=== PATIENT | female | born 1975 | race Caucasian/White ===

== ENCOUNTER 2017-12-04 10:51 | Day surgery (SDC) | payer BC, OTHER ==
[~2017-12-04 10:51] MED LIST: Lactated Ringers 1,000 ML IV SCH; Sodium Chloride 0.9% 10 ML Syringe FLUSH PRN; Sodium Chloride 0.9% 2.5 ML Syringe FLUSH PRN
--- NOTE | 2017-12-04 12:11 | PCM.PREANE ---
Preanesthetic Assessment - Anesthesia/Transfusion/Family Hx Anesthesia History: Prior Anesthesia Without Reaction Family History of Anesthesia Reaction: No Transfusion History: No Prior Transfusion(s) - Review of Systems General: No Symptoms Pulmonary: No Symptoms Cardiovascular: No Symptoms Gastrointestinal: No Symptoms Other: Reports: None - Physical Assessment NPO Status Date: 12/03/17 NPO Status Time: 22:00 O2 Sat by Pulse Oximetry: 100 Respiratory Rate: 16 Vital Signs: Last Vital Signs Temp 36.4 C 12/04/17 11:15 Pulse 66 12/04/17 11:15 Resp 16 12/04/17 11:15 BP 95/54 L 12/04/17 11:15 Pulse Ox 100 12/04/17 11:15 Height: 1.68 m Weight: 78.471 kg ASA Class: 2 Mental Status: Alert & Oriented x3 Airway Class: Mallampati = 2 Dentition: Reports: Normal Dentition ROM/Head Extension: Full Lungs: Clear to Auscultation, Normal Respiratory Effort Cardiovascular: Regular Rate, Regular Rhythm - Lab Values: Laboratory Last Values POC Glucose 201 mg/dL (60-110) H 12/04/17 11:17 - Allergies Allergies/Adverse Reactions: Allergies Allergy/AdvReac Type Severity Reaction Status Date / Time aspirin Allergy Hives Verified 11/29/17 15:47 glyburide Allergy Hives Verified 11/29/17 15:47 ibuprofen Allergy Hives Verified 11/29/17 15:47 paroxetine HCl [From Paxil] Allergy Hives Verified 11/29/17 15:47 penicillin G Allergy Hives Verified 11/29/17 15:47 phenobarbital Allergy Hives Verified 11/29/17 15:47 sulfamethoxazole Allergy Hives Verified 11/29/17 15:47 [From Bactrim] trimethoprim [From Bactrim] Allergy Hives Verified 11/29/17 15:47 - Acknowledgements Anesthesia Type Planned: MAC Pt an Appropriate Candidate for the Planned Anesthesia: Yes Alternatives and Risks of Anesthesia Discussed w Pt/Guardian: Yes Pt/Guardian Understands and Agrees with Anesthesia Plan: Yes Additional Comments: Last seizure was several years ago, DM@ with sugar of 201 today PreAnesthesia Questionnaire Other HEENT History: wears glasses 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: Reports: Endometriosis Neurological History: Reports: Seizure, Other (See Below) Other Neuro History: hx of Epilepsy, last seizure was 5 years ago, hx of motion sickness Psychiatric History: Reports: Anxiety, Depression Endocrine/Metabolic History: Reports: Diabetes, Type II - Past Surgical History GI Surgical History: Reports: Hernia, Inguinal Female Surgical History: Reports: Hysterectomy Musculoskeletal Surgical History: Reports: Arthroscopic Knee Other Musculoskeletal Surgeries/Procedures:: bilateral - SUBSTANCE USE Smoking Status *Q: Former Smoker Tobacco Use Within Last Twelve Months: Cigarettes Days Per Week of Alcohol Use: 0 Recreational Drug Use History: No - HOME MEDS Home Medications: Home Meds Lisinopril 5 mg PO DAILY 03/30/15 [History] Sertraline [Zoloft] 100 mg PO DAILY 03/30/15 [History] levETIRAcetam [Keppra] 500 mg PO BID 03/30/15 [History] metFORMIN [Glucophage] 750 mg PO BIDMEALS 03/30/15 [History] Cholecalciferol (Vitamin D3) [Vitamin D3] 1,000 unit PO DAILY 12/02/17 [History] Cyanocobalamin (Vitamin B12) [Vitamin B12] 1,000 mg PO ASDIRECTED 12/02/17 [ History] Esomeprazole Magnesium [Nexium 24Hr] 22.3 mg PO DAILY 12/02/17 [History] Liraglutide [Victoza] 1.2 mg SQ DAILY 12/02/17 [History] Saxagliptin HCl [Onglyza] 5 mg PO DAILY 12/02/17 [History] - CURRENT (IN HOUSE) MEDS Current Meds: Current Medications Lactated Ringer's (Ringers, Lactated) 1,000 mls @ 125 mls/hr IV ASDIRECTED [facility] Last Admin: 12/04/17 11:21 Dose: 125 mls/hr Sodium Chloride (Saline Flush) 10 ml FLUSH ASDIRECTED PRN PRN Reason: Keep Vein Open Sodium Chloride (Saline Flush) 2.5 ml FLUSH ASDIRECTED PRN PRN Reason: Keep Vein Open Sodium Chloride (Saline Flush) 10 ml FLUSH ASDIRECTED PRN PRN Reason: Keep Vein Open Sodium Chloride (Saline Flush) 2.5 ml FLUSH ASDIRECTED PRN PRN Reason: Keep Vein Open
[2017-12-04] MEDS ORDERED: Propofol 200 MG/20 ML SDV ONE (13:44)
[2017-12-04] MEDS ORDERED: Lidocaine 2% 5 ML SDV ONE (13:47)
--- NOTE | 2017-12-04 14:16 | PCM.OPNOTE ---
- General Post-Op/Procedure Note Date of Surgery/Procedure: 12/04/17 Operative Procedure(s): EGD Findings: Mild gastritis Pre Op Diagnosis: Dysphagia, early satiety, weight loss Post-Op Diagnosis: Mild gastritis Anesthesia Technique: XOCHITL Primary Surgeon: Kalpana Bello Condition: Good
--- NOTE | 2017-12-04 14:23 | PCM.POSTAN ---
POST ANESTHESIA ASSESSMENT - MENTAL STATUS Mental Status: Alert, Oriented - VITAL SIGNS Pulse Rate: 65 SaO2: 95 Resp Rate: 20 Blood Pressure: 106/59 - RESPIRATORY Respiratory Status: Respiratory Rate WNL, Airway Patent, O2 Saturation Stable - CARDIOVASCULAR CV Status: Pulse Rate WNL, Blood Pressure Stable - GASTROINTESTINAL GI Status: No Symptoms - PAIN Pain Score: 0 - POST OP HYDRATION Hydration Status: Adequate & Stable
[2017-12-04 15:00] VITALS: BP 106/62
--- NOTE | 2017-12-04 15:06 | PCM48HPAN ---
Post Anesthesia Note - EVALUATION WITHIN 48HRS OF ANESTHETIC Vital Signs in Normal Range: Yes Patient Participated in Evaluation: Yes Respiratory Function Stable: Yes Airway Patent: Yes Cardiovascular Function Stable: Yes Hydration Status Stable: Yes Pain Control Satisfactory: Yes Nausea and Vomiting Control Satisfactory: Yes Mental Status Recovered: Yes
--- NOTE | 2017-12-04 22:05 | OR ---
SURGEON: GERARD BECK MD DATE OF PROCEDURE: 12/04/2017 PREOPERATIVE DIAGNOSES: 1. Unexplained weight loss. 2. Early satiety. 3. Dysphagia. POSTOPERATIVE DIAGNOSIS: Mild gastritis. PROCEDURE PERFORMED: Diagnostic EGD. ANESTHESIA: MAC. EXTENT TO EXAM: To the second portion of duodenum. PREPARATION: Good. LIMITATIONS: None. INSTRUMENT USED: Olympus endoscope. INDICATIONS: The patient is a 42-year-old female, who has had early satiety, unexplained weight loss, and dysphagia for the past several months. The patient underwent a diagnostic esophagram that showed no abnormalities. The decision was made to proceed with a diagnostic EGD. The patient and I discussed the procedure as well as expected perioperative course. We discussed the risks including bleeding or perforation. The patient verbalized understanding and wishes to proceed. PROCEDURE IN DETAIL: The patient was brought into the endoscopy suite and placed in a beach chair position. A time-out was completed verifying the patient's name, age, date of , allergies, and procedure to be performed. A bite block was placed in the patient's mouth and monitored anesthesia care was induced. Continuous oxygen was provided via nasal cannula throughout the procedure. After adequate sedation was achieved, a well lubricated endoscope was placed in the patient's mouth and advanced under direct visualization to the second portion of duodenum. This appeared normal and a photograph was taken. The scope was then fully withdrawn while examining the color, texture, anatomy, and integrity of the upper GI tract. The patient's duodenal bulb appeared normal with no evidence of inflammation. The scope was brought into the stomach and a photograph was taken of the pylorus as well as the GE junction which appeared normal. The gastric mucosa appeared slightly erythematous, which would suggest some mild gastritis. Biopsies were taken of the gastric antrum, body, and fundus and sent for H. pylori testing and histologic review. The scope was then brought into the distal esophagus and a photograph was taken of the Z-line, which appeared normal. The scope was then fully withdrawn while closely examining the esophageal mucosa. The esophageal mucosa showed no evidence of any pathologic changes. The scope was then fully withdrawn and the procedure terminated. The patient tolerated the procedure well and was taken to PACU in stable condition. ENDOSCOPIC DIAGNOSIS: Mild gastritis, otherwise normal esophagogastroduodenoscopy. RECOMMENDATIONS: Follow up in clinic in 2 weeks. The patient and I discussed looking for other etiologies for her unexplained weight loss and early satiety by performing a possible CT scan of the chest, abdomen, and pelvis. If this appears normal, then we will refer the patient on to a dolphin trainer for further workup. SOCORRO MOORE /[id number]
== END 2017-12-04 14:50 | disposition home or self-care (01) ==
LOC: MW.SDS 10:51
PROVIDERS: ATTEND Surgery
DX: R13.10 Dysphagia, unspecified (principal); F41.9 Anxiety disorder, unspecified; F32.9 Major depressive disorder, single episode, unspecified; R56.9 Unspecified convulsions; E11.9 Type 2 diabetes mellitus without complications; Z88.6 Allergy status to analgesic agent; Z88.1 Allergy status to other antibiotic agents; Z88.8 Allergy status to other drugs, medicaments and biological substances; Z88.0 Allergy status to penicillin; Z88.2 Allergy status to sulfonamides; Z79.899 Other long term (current) drug therapy; Z90.710 Acquired absence of both cervix and uterus; Z98.890 Other specified postprocedural states; Z87.891 Personal history of nicotine dependence
CPT/HCPCS: 43235; 82962; J7120; 88305; 88312; J2704

== ENCOUNTER 2019-07-18 12:47 | Emergency (ER) | payer OTHER ==
[2019-07-18] MEDS ORDERED: methylPREDNISolone Sodium Succinate 125 MG/2 ML SDV IVPUSH ONE (12:50)
[2019-07-18] MEDS ORDERED: Sodium Chloride 0.9% 10 ML Syringe FLUSH PRN (12:50)
[2019-07-18] MEDS ORDERED: Famotidine 20 MG/2 ML SDV IVPUSH ONE (12:50)
[2019-07-18] MEDS ORDERED: Sodium Chloride 0.9% 1,000 ML IV ONE (12:50)
[2019-07-18] MEDS ORDERED: diphenhydrAMINE 50 MG/ML SDV IVPUSH ONE (12:50)
[2019-07-18] MEDS ORDERED: Sodium Chloride 0.9% 2.5 ML Syringe FLUSH PRN (12:50)
--- NOTE | 2019-07-18 13:05 | EDM.PDOC ---
ED HPI GENERAL MEDICAL PROBLEM - General Chief Complaint: Allergic Reaction Stated Complaint: BEE STING Time Seen by Provider: 07/18/19 12:50 Source of Information: Reports: Patient History Limitations: Reports: No Limitations - History of Present Illness INITIAL COMMENTS - FREE TEXT/NARRATIVE: History of present illness: []She has history of anaphylaxis to bee stings and was stung by a wasp minutes prior to arrival. She states her chest feels tight but has no throat symptoms at this point. Patient had run out of her EpiPen and not taking any meds prior to arrival. Review of systems: As per history of present illness and below otherwise all systems reviewed and negative. Past medical history: As per history of present illness and as reviewed below otherwise noncontributory. Surgical history: As per history of present illness and as reviewed below otherwise noncontributory. Social history: No reported history of drug or alcohol abuse. Family history: As per history of present illness and as reviewed below otherwise noncontributory. Physical exam: General: Well developed, well nourished in NAD HEENT: Atraumatic, normocephalic, pupils reactive, negative for conjunctival pallor or scleral icterus, mucous membranes moist, throat clear, no erythema or edema neck supple, nontender, trachea midline. No stridor Lungs: Clear to auscultation, breath sounds equal bilaterally, chest nontender. No wheezing or chest wall retractions Heart: S1S2, regular, negative for clicks, rubs, or JVD. Abdomen: NABS, Soft, nondistended, nontender. Negative for masses or hepatosplenomegaly. Negative for costovertebral tenderness. Pelvis: Stable nontender. Genitourinary: Deferred. Rectal: Deferred. Extremities: Atraumatic, negative for cords or calf pain. Neurovascular unremarkable. Neuro: Awake, alert, oriented. Cranial nerves II through XII unremarkable. Cerebellum unremarkable. Motor and sensory unremarkable throughout. Exam nonfocal. Skin: warm and dry no rashes Diagnostics: Monitored Therapeutics: solumedrol, Benadryl, Pepcid, IV fluid ED Course: stable Impression: Allergic reaction Prescriptions: Epipen Plan: Take meds as directed, follow up with your primary care physician, return to ER if symptoms worsen or change. Definitive disposition and diagnosis as appropriate pending reevaluation and review of above. - Related Data Allergies Allergy/AdvReac Type Severity Reaction Status Date / Time aspirin Allergy Hives Verified 11/29/17 15:47 bee venom protein (honey bee) Allergy Anaphylactic Verified 07/18/19 13:16 Shock glyburide Allergy Hives Verified 11/29/17 15:47 ibuprofen Allergy Hives Verified 11/29/17 15:47 paroxetine HCl [From Paxil] Allergy Hives Verified 11/29/17 15:47 penicillin G Allergy Hives Verified 11/29/17 15:47 phenobarbital Allergy Hives Verified 11/29/17 15:47 sulfamethoxazole Allergy Hives Verified 11/29/17 15:47 [From Bactrim] trimethoprim [From Bactrim] Allergy Hives Verified 11/29/17 15:47 Home Meds: Home Meds Lisinopril 5 mg PO DAILY 03/30/15 [History] Sertraline [Zoloft] 100 mg PO DAILY 03/30/15 [History] levETIRAcetam [Keppra] 500 mg PO BID 03/30/15 [History] metFORMIN [Glucophage] 500 mg PO BIDMEALS 03/30/15 [History] Cholecalciferol (Vitamin D3) [Vitamin D3] 1,000 unit PO DAILY 12/02/17 [History] Cyanocobalamin (Vitamin B12) [Vitamin B12] 1,000 mg PO ASDIRECTED 12/02/17 [ History] Esomeprazole Magnesium [Nexium 24Hr] 22.3 mg PO DAILY 12/02/17 [History] Liraglutide [Victoza] 1.2 mg SQ DAILY 12/02/17 [History] EPINEPHrine [Epipen] 0.3 mg IM ASDIRECTED PRN #2 injection 07/18/19 [Rx] Past Medical History Other HEENT History: 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 glasses 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 Neurological History: Reports: Seizure, Other (See Below) Other Neuro History: hx of Epilepsy, last seizure was 5 years ago, hx of motion sickness Psychiatric History: Reports: Anxiety, Depression Endocrine/Metabolic History: Reports: Diabetes, Type II - Past Surgical History GI Surgical History: Reports: Hernia, Inguinal Female Surgical History: Reports: Hysterectomy Musculoskeletal Surgical History: Reports: Arthroscopic Knee Other Musculoskeletal Surgeries/Procedures:: bilateral ED ROS ALLERGIC REACTION - Review of Systems Review Of Systems: See Below ED EXAM GENERAL NO PERIP PULSE - Physical Exam Exam: See Below Course - Vital Signs Last Recorded V/S: Last Vital Signs Temp 96.3 F 07/18/19 13:00 Pulse 79 07/18/19 13:00 Resp 18 07/18/19 13:00 BP 117/58 L 07/18/19 13:00 Pulse Ox 100 07/18/19 13:00 - Orders/Labs/Meds Orders: Active Orders 24 hr Category Date Time Status Cardiac Monitoring [RC] . DIRECTED Care 07/18/19 12:51 Active Sodium Chloride 0.9% [Saline Flush] Med 07/18/19 12:50 Active 10 ml FLUSH ASDIRECTED PRN Sodium Chloride 0.9% [Saline Flush] Med 07/18/19 12:50 Active 2.5 ml FLUSH ASDIRECTED PRN Saline Lock Insert [OM.PC] Stat Oth 07/18/19 12:50 Ordered Medication Orders Sodium Chloride (Saline Flush) 10 ml FLUSH ASDIRECTED PRN PRN Reason: Keep Vein Open Last Admin: 07/18/19 13:07 Dose: 10 ml Sodium Chloride (Saline Flush) 2.5 ml FLUSH ASDIRECTED PRN PRN Reason: Keep Vein Open Last Admin: 07/18/19 13:07 Dose: 2.5 ml Meds: Medications Generic Name Dose Route Start Last Admin Trade Name Freq PRN Reason Stop Dose Admin Sodium Chloride 10 ml 07/18/19 12:50 07/18/19 13:07 Saline Flush FLUSH 10 ml ASDIRECTED PRN Administration Keep Vein Open Sodium Chloride 2.5 ml 07/18/19 12:50 07/18/19 13:07 Saline Flush FLUSH 2.5 ml ASDIRECTED PRN Administration Keep Vein Open Discontinued Medications Generic Name Dose Route Start Last Admin Trade Name Freq PRN Reason Stop Dose Admin Diphenhydramine HCl 25 mg 07/18/19 12:50 07/18/19 13:06 Benadryl IVPUSH 07/18/19 12:51 25 mg ONETIME ONE Administration Famotidine 20 mg 07/18/19 12:50 07/18/19 13:06 Pepcid IVPUSH 07/18/19 12:51 20 mg ONETIME ONE Administration Sodium Chloride 1,000 mls @ 999 mls/hr 07/18/19 12:50 07/18/19 13:06 Normal Saline IV 07/18/19 13:50 999 mls/hr .Bolus ONE Administration Methylprednisolone Sodium Succinate 125 mg 07/18/19 12:50 07/18/19 13:07 Solu-Medrol IVPUSH 07/18/19 12:51 125 mg ONETIME ONE Administration Departure - Departure Time of Disposition: 14:11 Disposition: Home, Self-Care 01 Condition: Good Clinical Impression: Allergic reaction Qualifiers: Encounter type: initial encounter Qualified Code(s): T78.40XA - Allergy, unspecified, initial encounter - Discharge Information *PRESCRIPTION DRUG MONITORING PROGRAM REVIEWED*: Not Applicable *COPY OF PRESCRIPTION DRUG MONITORING REPORT IN PATIENT VALENTIN: Not Applicable Prescriptions: EPINEPHrine [Epipen] 0.3 mg IM ASDIRECTED PRN #2 injection PRN Reason: Allergies Referrals: PCP,None [Primary Care Provider] - Additional Instructions: The following information is given to patients seen in the emergency department who are being discharged to home. This information is to outline your options for follow-up care. We provide all patients seen in our emergency department with a follow-up referral. The need for follow-up, as well as the timing and circumstances, are variable depending upon the specifics of your emergency department visit. If you don't have a primary care physician on staff, we will provide you with a referral. We always advise you to contact your personal physician following an emergency department visit to inform them of the circumstance of the visit and for follow-up with them and/or the need for any referrals to a consulting specialist. The emergency department will also refer you to a specialist when appropriate. This referral assures that you have the opportunity for follow-up care with a specialist. All of these measure are taken in an effort to provide you with optimal care, which includes your follow-up. Under all circumstances we always encourage you to contact your private physician who remains a resource for coordinating your care. When calling for follow-up care, please make the office aware that this follow-up is from your recent emergency room visit. If for any reason you are refused follow-up, please contact the [facility] at and asked to speak to the emergency department charge nurse. Take meds as directed, follow up with your primary care physician, return to ER if symptoms worsen or change. [facility] [address] [place] [id number] - My Orders Last 24 Hours: My Active Orders 07/18/19 12:50 Sodium Chloride 0.9% [Saline Flush] 10 ml FLUSH ASDIRECTED PRN Sodium Chloride 0.9% [Saline Flush] 2.5 ml FLUSH ASDIRECTED PRN Saline Lock Insert [OM.PC] Stat 07/18/19 12:51 Cardiac Monitoring [RC] . DIRECTED - Assessment/Plan Last 24 Hours: My Active Orders 07/18/19 12:50 Sodium Chloride 0.9% [Saline Flush] 10 ml FLUSH ASDIRECTED PRN Sodium Chloride 0.9% [Saline Flush] 2.5 ml FLUSH ASDIRECTED PRN Saline Lock Insert [OM.PC] Stat 07/18/19 12:51 Cardiac Monitoring [RC] . DIRECTED
[2019-07-18 14:36] VITALS: BP 112/65; PULSE 65
== END 2019-07-18 14:36 | disposition home or self-care (01) ==
LOC: MW.ED 12:47
DX: T63.461A Toxic effect of venom of wasps, accidental (unintentional), initial encounter (principal); R07.9 Chest pain, unspecified; E11.9 Type 2 diabetes mellitus without complications; F41.9 Anxiety disorder, unspecified; F32.9 Major depressive disorder, single episode, unspecified; G40.909 Epilepsy, unspecified, not intractable, without status epilepticus; Z79.84 Long term (current) use of oral hypoglycemic drugs; Z79.899 Other long term (current) drug therapy; Z88.2 Allergy status to sulfonamides; Z88.1 Allergy status to other antibiotic agents; Z88.6 Allergy status to analgesic agent; Z91.030 Bee allergy status; Z88.8 Allergy status to other drugs, medicaments and biological substances; Z88.0 Allergy status to penicillin
CPT/HCPCS: 96361; 96374; 96375; 99282; J1200; J2930; J7040; S0028; J3490

== ENCOUNTER 2020-05-07 00:46 | Inpatient (IN) | payer OTHER ==
[2020-05-07] MEDS ORDERED: Ondansetron 4 MG/2 ML SDV IVPUSH ONE ×2 (00:59→09:54)
[2020-05-07] MEDS ORDERED: Sodium Chloride 0.9% 2.5 ML Syringe FLUSH PRN (00:59)
[2020-05-07] MEDS ORDERED: Sodium Chloride 0.9% 10 ML Syringe FLUSH PRN (00:59)
[2020-05-07] MEDS ORDERED: Ondansetron 4 MG/2 ML SDV ONE (01:00)
[2020-05-07] MEDS ORDERED: Lactated Ringers 1,000 ML IV ONE ×3 (01:11→23:49)
--- NOTE | 2020-05-07 01:21 | EDM.PDOC ---
ED HPI GENERAL MEDICAL PROBLEM - General Chief Complaint: Chest Pain Stated Complaint: CHEST PAIN, FINGERS NUMB Time Seen by Provider: 05/07/20 00:48 Source of Information: Reports: Patient, Old Records History Limitations: Reports: No Limitations - History of Present Illness INITIAL COMMENTS - FREE TEXT/NARRATIVE: 44-year-old female past medical history of type 2 diabetes mellitus, hypertension, depression, GERD presenting with chest discomfort, nausea, vomiting. Patient states that around 6:30 PM this evening, she was eating dinner at a wedding. Immediately after eating, she began feeling diaphoretic, nauseated, and has experienced persistent vomiting. Reports 5X episodes of nonbloody emesis this evening along with generalized weakness, diaphoresis, intermittent numbness in both of her hands. Complains of midline thoracic back pain as well. No self treatment prior to arrival, no other complaints. No one else that ate the same food at the wedding became ill. Epigastric Pain Score (Numeric/FACES): 10 - Related Data Allergies Allergy/AdvReac Type Severity Reaction Status Date / Time aspirin Allergy Hives Verified 05/07/20 01:29 bee venom protein (honey bee) Allergy Anaphylactic Verified 05/07/20 01:29 Shock glyburide Allergy Hives Verified 05/07/20 01:29 ibuprofen Allergy Hives Verified 05/07/20 01:29 paroxetine HCl [From Paxil] Allergy Hives Verified 05/07/20 01:29 penicillin G Allergy Hives Verified 05/07/20 01:29 phenobarbital Allergy Hives Verified 05/07/20 01:29 sulfamethoxazole Allergy Hives Verified 05/07/20 01:29 [From Bactrim] trimethoprim [From Bactrim] Allergy Hives Verified 05/07/20 01:29 Home Meds: Home Meds Insulin Detemir [Levemir] 10 units SUBCUT BEDTIME 05/07/20 [History] Insulin Detemir [Levemir] 25 units SUBCUT DAILY 05/07/20 [History] Insulin Lispro [HumaLOG] 1 unit SUBCUT TIDMEALS 05/07/20 [History] Non-Formulary Medication [NF Drug] 05/07/20 [History] Omeprazole 20 mg PO DAILY 05/07/20 [History] Potassium Chloride [Klor-Con M20] 80 mg PO BID 05/07/20 [History] Sertraline [Zoloft] 50 mg PO DAILY 05/07/20 [History] SitaGLIPtin [Januvia] 50 mg PO DAILY 05/07/20 [History] levETIRAcetam [Keppra XR] 500 mg PO BID 05/07/20 [History] metFORMIN [Glucophage XR] 1,000 mg PO DAILY 05/07/20 [History] metOLazone [Metolazone] 2.5 mg PO DAILY 05/07/20 [History] Past Medical History Other HEENT History: wears glasses [employer] History: Reports: Endometriosis Neurological History: Reports: Seizure, Other (See Below) Other Neuro History: hx of Epilepsy, last seizure was 5 years ago, hx of motion sickness Psychiatric History: Reports: Anxiety, Depression Endocrine/Metabolic History: Reports: Diabetes, Type II - Infectious Disease History Infectious Disease History: Reports: None - Past Surgical History GI Surgical History: Reports: Hernia, Inguinal Female Surgical History: Reports: Hysterectomy Musculoskeletal Surgical History: Reports: Arthroscopic Knee Other Musculoskeletal Surgeries/Procedures:: bilateral Social & Family History - Family History Family Medical History: Noncontributory - Tobacco Use Smoking Status *Q: Never Smoker Second Hand Smoke Exposure: No - Caffeine Use Caffeine Use: Reports: None - Recreational Drug Use Recreational Drug Use: No ED ROS GENERAL - Review of Systems Review Of Systems: See Below Constitutional: Reports: Malaise, Weakness. Denies: Fever, Chills HEENT: Reports: No Symptoms Respiratory: Denies: Shortness of Breath Cardiovascular: Denies: Chest Pain Endocrine: Reports: No Symptoms GI/Abdominal: Reports: Abdominal Pain, Nausea, Vomiting. Denies: Black Stool, Bloody Stool, Hematemesis, Hematochezia, Melena, Stool Incontinence : Denies: Flank Pain Musculoskeletal: Reports: Back Pain Skin: Reports: Diaphoresis Neurological: Reports: Numbness (Bilateral hand numbness). Denies: Headache Psychiatric: Reports: No Symptoms ED EXAM, GENERAL - Physical Exam Exam: See Below Free Text/Narrative:: Vital signs reviewed. Nursing notes reviewed. Constitutional: Awake, alert, appears uncomfortable. Head: Normocephalic, atraumatic. Eyes: EOMI, conjunctiva normal, no discharge, no scleral icterus. Ears, Nose, Throat: External ears and nose normal, moist oral mucosa. Cardiovascular: 2+ radial pulses bilaterally, 2+ DP pulses bilaterally capillary refill less than 2 seconds. Pulmonary: normal work of breathing, no accessory muscle use. CTA BL Abdomen/GI: Soft, mild epigastric tenderness, nondistended, no guarding or rigidity, no masses. Musculoskeletal: No deformities. Integumentary: Appropriate color for ethnicity, cool, diaphoretic, no pallor or jaundice, no rash. Neurologic: Alert, answering questions appropriately, normal speech, no facial droop, moving all extremities well. Psychiatric: Appropriate mood and affect, normal thought process. EKG INTERPRETATION EKG Interpretation Comments: 12-Lead ECG Interpretation Acquired: 1:04 AM Rhythm: Sinus rhythm Rate: 73 bpm Harvey: Normal Intervals: Prolonged QT Ectopy: None Ischemic Changes: None apparent RV Strain: No obvious RV strain pattern. ST Segments/T-Waves: No notable changes Interpretation: Prolonged QT Course - Vital Signs Text/Narrative:: Patient hemodynamically stable, afebrile, well-appearing, looks nontoxic. Differential diagnosis includes but is not limited to: Gastroenteritis, gastritis, peptic ulcer disease, pancreatitis, acute cholecystitis, biliary colic, acute coronary syndrome, thoracic aortic dissection, Boerhaave syndrome, electrolyte disturbance, anemia, etc. Labs returned showing a significant leukocytosis with neutrophilic predominance. Lactate elevated at 3.6. Severe hypokalemia to 2.1. Urinalysis shows ketones but no evidence of blood or infection. Twelve-lead EKG obtained showing severe QT interval prolongation. IV access established and blood cultures were drawn. Patient was given IV magnesium sulfate followed by IV potassium chloride. She received IV fentanyl and antibiotic medications. She was then given p.o. potassium. She was given a dose of vancomycin and meropenem given possible concern for sepsis. She was initially mildly hypothermic and has a significant leukocytosis. However, she does not have any focal infectious symptoms. Lactate improved after IV fluids. Given severe epigastric pain radiating to the thoracic back, we pursued CT angiographic imaging of the chest, abdomen, and pelvis. We also performed an ultrasound study of the abdomen. These studies showed no acute findings. Patient will need to be admitted to the hospital given her severe hypokalemia with ECG changes. She will also need to have her cultures followed to ensure there is not an infectious etiology to explain her symptoms. I spoke with the accepting hospitalist Dr. Barrios who agrees to admit. Last Recorded V/S: Last Vital Signs Temp 35.8 C L 05/07/20 01:06 Pulse 79 05/07/20 04:17 Resp 12 05/07/20 04:17 BP 123/67 05/07/20 04:17 Pulse Ox 100 05/07/20 04:17 - Orders/Labs/Meds Orders: Active Orders 24 hr Category Date Time Status Cardiac Monitoring [RC] . DIRECTED Care 05/07/20 00:59 Active EKG 12 Lead [EKG Documentation Completion] [RC] STAT Care 05/07/20 00:52 Active Pulse Oximetry [RC] ASDIRECTED Care 05/07/20 00:59 Active Ang Pelvis [CT] Stat Exams 05/07/20 02:30 Taken CULTURE BLOOD [] Stat Lab 05/07/20 03:10 Results CULTURE BLOOD [BC] Stat Lab 05/07/20 03:20 Results Sodium Chloride 0.9% [Saline Flush] Med 05/07/20 00:59 Active 10 ml FLUSH ASDIRECTED PRN Sodium Chloride 0.9% [Saline Flush] Med 05/07/20 00:59 Active 2.5 ml FLUSH ASDIRECTED PRN Blood Culture x2 Reflex Set [OM.PC] Stat Oth 05/07/20 02:56 Ordered Saline Lock Insert [OM.PC] Stat Oth 05/07/20 00:59 Ordered Medication Orders Acetaminophen (Tylenol Extra Strength) 500 mg PO Q4H PRN PRN Reason: fever/pain Lactated Ringer's (Ringers, Lactated) 1,000 mls @ 125 mls/hr IV ASDIRECTED [facility] Last Admin: 05/07/20 05:48 Dose: 125 mls/hr Documented by: LYDIA Pantoprazole Sodium 40 mg/ (Sodium Chloride) 10 mls @ 300 mls/hr IV Q24H [facility] Last Admin: 05/07/20 05:48 Dose: 300 mls/hr Documented by: LYDIA Vancomycin HCl 1 gm/ Sodium (Chloride) 250 mls @ 166 mls/hr IV Q12H [facility] Meropenem 1 gm/ Sodium (Chloride) 100 mls @ 200 mls/hr IV Q12H [facility] Insulin Aspart (Novolog) 0 unit SUBCUT TIDAC [facility]; Protocol Last Admin: 05/07/20 06:43 Dose: 3 units Documented by: LYDIA Morphine Sulfate (Morphine) 1 mg IVPUSH Q4H PRN PRN Reason: Pain Sodium Chloride (Saline Flush) 10 ml FLUSH ASDIRECTED PRN PRN Reason: Keep Vein Open Sodium Chloride (Saline Flush) 2.5 ml FLUSH ASDIRECTED PRN PRN Reason: Keep Vein Open Labs: Laboratory Tests 05/07/20 05/07/20 05/07/20 Range/Units 00:55 00:55 00:55 WBC 22.98 H (4.0-11.0) K/uL RBC 5.23 (4.30-5.90) M/uL Hgb 14.4 (12.0-16.0) g/dL Hct 41.0 (36.0-46.0) % MCV 78.4 L (80.0-98.0) fL MCH 27.5 (27.0-32.0) pg MCHC 35.1 (31.0-37.0) g/dL RDW Std Deviation 36.4 (28.0-62.0) fl RDW Coeff of Wil 13 (11.0-15.0) % Plt Count 314 (150-400) K/uL MPV 11.10 (7.40-12.00) fL Neut % (Auto) 82.2 H (48.0-80.0) % Lymph % (Auto) 11.4 L (16.0-40.0) % [place] % (Auto) 6.2 (0.0-15.0) % Eos % (Auto) 0.1 (0.0-7.0) % Baso % (Auto) 0.1 (0.0-1.5) % Neut # (Auto) 18.9 H (1.4-5.7) K/uL Lymph # (Auto) 2.6 H (0.6-2.4) K/uL [place] # (Auto) 1.4 H (0.0-0.8) K/uL Eos # (Auto) 0.0 (0.0-0.7) K/uL Baso # (Auto) 0.0 (0.0-0.1) K/uL INR Lactate (0.20-2.00) mmol/L Sodium 135 L (136-145) mmol/L Potassium 2.1 L* (3.5-5.1) mmol/L Chloride 92 L (98-107) mmol/L Carbon Dioxide 23.0 (21.0-32.0) mmol/L BUN 18 (7.0-18.0) mg/dL Creatinine 1.0 (0.6-1.0) mg/dL Est Cr Clr Drug Dosing 69.09 mL/min Estimated GFR (MDRD) 60.0 ml/min Glucose 181 H (74-106) mg/dL Calcium 9.8 (8.5-10.1) mg/dL Total Bilirubin 0.6 (0.2-1.0) mg/dL AST 18 (15-37) IU/L ALT 21 (14-63) IU/L Alkaline Phosphatase 88 (46-116) U/L Troponin I < 0.050 (0.000-0.056) ng/mL Total Protein 7.7 (6.4-8.2) g/dL Albumin 4.2 (3.4-5.0) g/dL Globulin 3.5 (2.6-4.0) g/dL Albumin/Globulin Ratio 1.2 (0.9-1.6) Lipase (73-393) U/L HCG, Qual NEGATIVE (NEG) Urine Color Urine Appearance Urine pH (5.0-8.0) Ur Specific [place] (1.001-1.035) Urine Protein (NEGATIVE) mg/dL Urine Glucose (UA) (NEGATIVE) mg/dL Urine Ketones (NEGATIVE) mg/dL Urine Occult Blood (NEGATIVE) Urine Nitrite (NEGATIVE) Urine Bilirubin (NEGATIVE) Urine Urobilinogen (<2.0) EU/dL Ur Leukocyte Esterase (NEGATIVE) 05/07/20 05/07/20 05/07/20 Range/Units 00:55 00:55 00:55 WBC (4.0-11.0) K/uL RBC (4.30-5.90) M/uL Hgb (12.0-16.0) g/dL Hct (36.0-46.0) % MCV (80.0-98.0) fL MCH (27.0-32.0) pg MCHC (31.0-37.0) g/dL RDW Std Deviation (28.0-62.0) fl RDW Coeff of Wil (11.0-15.0) % Plt Count (150-400) K/uL MPV (7.40-12.00) fL Neut % (Auto) (48.0-80.0) % Lymph % (Auto) (16.0-40.0) % [place] % (Auto) (0.0-15.0) % Eos % (Auto) (0.0-7.0) % Baso % (Auto) (0.0-1.5) % Neut # (Auto) (1.4-5.7) K/uL Lymph # (Auto) (0.6-2.4) K/uL [place] # (Auto) (0.0-0.8) K/uL Eos # (Auto) (0.0-0.7) K/uL Baso # (Auto) (0.0-0.1) K/uL INR 1.01 Lactate 3.6 H* (0.20-2.00) mmol/L Sodium (136-145) mmol/L Potassium (3.5-5.1) mmol/L Chloride (98-107) mmol/L Carbon Dioxide (21.0-32.0) mmol/L BUN (7.0-18.0) mg/dL Creatinine (0.6-1.0) mg/dL Est Cr Clr Drug Dosing mL/min Estimated GFR (MDRD) ml/min Glucose (74-106) mg/dL Calcium (8.5-10.1) mg/dL Total Bilirubin (0.2-1.0) mg/dL AST (15-37) IU/L ALT (14-63) IU/L Alkaline Phosphatase (46-116) U/L Troponin I (0.000-0.056) ng/mL Total Protein (6.4-8.2) g/dL Albumin (3.4-5.0) g/dL Globulin (2.6-4.0) g/dL Albumin/Globulin Ratio (0.9-1.6) Lipase 64 L (73-393) U/L HCG, Qual (NEG) Urine Color Urine Appearance Urine pH (5.0-8.0) Ur Specific [place] (1.001-1.035) Urine Protein (NEGATIVE) mg/dL Urine Glucose (UA) (NEGATIVE) mg/dL Urine Ketones (NEGATIVE) mg/dL Urine Occult Blood (NEGATIVE) Urine Nitrite (NEGATIVE) Urine Bilirubin (NEGATIVE) Urine Urobilinogen (<2.0) EU/dL Ur Leukocyte Esterase (NEGATIVE) 05/07/20 Range/Units 02:55 WBC (4.0-11.0) K/uL RBC (4.30-5.90) M/uL Hgb (12.0-16.0) g/dL Hct (36.0-46.0) % MCV (80.0-98.0) fL MCH (27.0-32.0) pg MCHC (31.0-37.0) g/dL RDW Std Deviation (28.0-62.0) fl RDW Coeff of Wil (11.0-15.0) % Plt Count (150-400) K/uL MPV (7.40-12.00) fL Neut % (Auto) (48.0-80.0) % Lymph % (Auto) (16.0-40.0) % [place] % (Auto) (0.0-15.0) % Eos % (Auto) (0.0-7.0) % Baso % (Auto) (0.0-1.5) % Neut # (Auto) (1.4-5.7) K/uL Lymph # (Auto) (0.6-2.4) K/uL [place] # (Auto) (0.0-0.8) K/uL Eos # (Auto) (0.0-0.7) K/uL Baso # (Auto) (0.0-0.1) K/uL INR Lactate (0.20-2.00) mmol/L Sodium (136-145) mmol/L Potassium (3.5-5.1) mmol/L Chloride (98-107) mmol/L Carbon Dioxide (21.0-32.0) mmol/L BUN (7.0-18.0) mg/dL Creatinine (0.6-1.0) mg/dL Est Cr Clr Drug Dosing mL/min Estimated GFR (MDRD) ml/min Glucose (74-106) mg/dL Calcium (8.5-10.1) mg/dL Total Bilirubin (0.2-1.0) mg/dL AST (15-37) IU/L ALT (14-63) IU/L Alkaline Phosphatase (46-116) U/L Troponin I (0.000-0.056) ng/mL Total Protein (6.4-8.2) g/dL Albumin (3.4-5.0) g/dL Globulin (2.6-4.0) g/dL Albumin/Globulin Ratio (0.9-1.6) Lipase (73-393) U/L HCG, Qual (NEG) Urine Color YELLOW Urine Appearance CLEAR Urine pH 5.5 (5.0-8.0) Ur Specific [place] 1.010 (1.001-1.035) Urine Protein NEGATIVE (NEGATIVE) mg/dL Urine Glucose (UA) NEGATIVE (NEGATIVE) mg/dL Urine Ketones 40 H (NEGATIVE) mg/dL Urine Occult Blood NEGATIVE (NEGATIVE) Urine Nitrite NEGATIVE (NEGATIVE) Urine Bilirubin NEGATIVE (NEGATIVE) Urine Urobilinogen 0.2 (<2.0) EU/dL Ur Leukocyte Esterase NEGATIVE (NEGATIVE) Meds: Medications Generic Name Dose Route Start Last Admin Trade Name Freq PRN Reason Stop Dose Admin Acetaminophen 500 mg 05/07/20 05:00 Tylenol Extra Strength PO Q4H PRN fever/pain Lactated Ringer's 1,000 mls @ 125 mls/hr 05/07/20 05:00 05/07/20 05:48 Ringers, Lactated IV 125 mls/hr ASDIRECTED [facility] Administration Pantoprazole Sodium 40 mg/ 10 mls @ 300 mls/hr 05/07/20 05:15 05/07/20 05:48 Sodium Chloride IV 300 mls/hr Q24H [facility] Administration Vancomycin HCl 1 gm/ Sodium 250 mls @ 166 mls/hr 05/07/20 16:00 Chloride IV Q12H [facility] Meropenem 1 gm/ Sodium 100 mls @ 200 mls/hr 05/07/20 16:00 Chloride IV Q12H [facility] Insulin Aspart 0 unit 05/07/20 07:30 05/07/20 06:43 Novolog SUBCUT 3 units TIDAC [facility] Administration Protocol Morphine Sulfate 1 mg 05/07/20 05:03 Morphine IVPUSH Q4H PRN Pain Sodium Chloride 10 ml 05/07/20 00:59 Saline Flush FLUSH ASDIRECTED PRN Keep Vein Open Sodium Chloride 2.5 ml 05/07/20 00:59 Saline Flush FLUSH ASDIRECTED PRN Keep Vein Open Discontinued Medications Generic Name Dose Route Start Last Admin Trade Name Odalys PRN Reason Stop Dose Admin Acetaminophen 1,000 mg 05/07/20 02:32 05/07/20 03:47 Tylenol Extra Strength PO 05/07/20 02:33 Not Given ONETIME ONE Fentanyl Confirm 05/07/20 02:18 05/07/20 02:57 Fentanyl Administered 05/07/20 02:19 50 mcg Dose Administration 50 mcg .ROUTE .STK-MED ONE Fentanyl 50 mcg 05/07/20 02:18 05/07/20 03:04 Fentanyl IVPUSH 05/07/20 02:19 Not Given ONETIME ONE Lactated Ringer's 1,000 mls @ 999 mls/hr 05/07/20 01:11 05/07/20 01:15 Ringers, Lactated IV 05/07/20 02:11 999 mls/hr .BOLUS ONE Administration Magnesium Sulfate 2 gm/ Premix 50 mls @ 50 mls/hr 05/07/20 01:56 05/07/20 02:08 IV 05/07/20 02:55 50 mls/hr ONETIME ONE Administration Potassium Chloride 20 meq/ 50 mls @ 25 mls/hr 05/07/20 01:57 05/07/20 03:48 Premix IV 05/07/20 03:56 20 mls/hr ONETIME ONE Infusion Vancomycin HCl 1.5 gm/ 250 mls @ 167 mls/hr 05/07/20 03:20 Dextrose/Water IV 05/07/20 04:49 ONETIME ONE Meropenem 2 gm/ Sodium 100 mls @ 100 mls/hr 05/07/20 03:23 05/07/20 03:50 Chloride IV 05/07/20 04:22 100 mls/hr ONETIME ONE Administration Vancomycin HCl 1.5 gm/ 500 mls @ 334.014 mls/hr 05/07/20 03:32 05/07/20 04:04 Dextrose/Water IV 05/07/20 04:49 334.014 mls/hr ONETIME ONE Administration Ibuprofen 400 mg 05/07/20 02:32 05/07/20 03:16 Motrin PO 05/07/20 02:33 Not Given ONETIME ONE Iopamidol 100 ml 05/07/20 02:32 05/07/20 02:32 Isovue-370 (76%) IVPUSH 05/07/20 02:33 100 ml ONETIME ONE Administration Metoclopramide HCl 10 mg 05/07/20 01:58 05/07/20 02:07 Reglan IVPUSH 05/07/20 01:59 10 mg ONETIME ONE Administration Ondansetron HCl 4 mg 05/07/20 00:59 05/07/20 01:09 Zofran IVPUSH 05/07/20 01:00 4 mg ONETIME ONE Administration Ondansetron HCl Confirm 05/07/20 01:00 05/07/20 01:15 Zofran Administered 05/07/20 01:01 Not Given Dose 4 mg .ROUTE .STK-MED ONE Potassium Chloride 60 meq 05/07/20 03:00 05/07/20 03:06 Potassium Chloride PO 05/07/20 03:01 60 meq ONETIME ONE Administration Departure - Departure Time of Disposition: 03:00 Disposition: Admitted As Inpatient 65 Clinical Impression: Hypokalemia, Epigastric abdominal pain Nausea and vomiting Qualifiers: Vomiting type: unspecified Vomiting Intractability: non-intractable Qualified Code(s): R11.2 - Nausea with vomiting, unspecified Sepsis Event Note (ED) - Evaluation Sepsis Screening Result: No Definite Risk - Focused Exam Vital Signs: Vital Signs Temp Pulse Resp BP Pulse Ox 05/07/20 03:16 82 12 129/52 L 99 05/07/20 02:14 64 18 136/64 99 05/07/20 01:18 73 21 H 132/72 100 05/07/20 01:06 35.8 C L 83 20 99/66 100 - My Orders Last 24 Hours: My Active Orders 05/07/20 00:52 EKG 12 Lead [EKG Documentation Completion] [RC] STAT 05/07/20 00:59 Cardiac Monitoring [RC] . DIRECTED Pulse Oximetry [RC] ASDIRECTED Sodium Chloride 0.9% [Saline Flush] 10 ml FLUSH ASDIRECTED PRN Sodium Chloride 0.9% [Saline Flush] 2.5 ml FLUSH ASDIRECTED PRN Saline Lock Insert [OM.PC] Stat 05/07/20 02:30 Ang Pelvis [CT] Stat 05/07/20 02:56 Blood Culture x2 Reflex Set [OM.PC] Stat 05/07/20 03:10 CULTURE BLOOD [BC] Stat 05/07/20 03:20 CULTURE BLOOD [BC] Stat - Assessment/Plan Last 24 Hours: My Active Orders 05/07/20 00:52 EKG 12 Lead [EKG Documentation Completion] [RC] STAT 05/07/20 00:59 Cardiac Monitoring [RC] . DIRECTED Pulse Oximetry [RC] ASDIRECTED Sodium Chloride 0.9% [Saline Flush] 10 ml FLUSH ASDIRECTED PRN Sodium Chloride 0.9% [Saline Flush] 2.5 ml FLUSH ASDIRECTED PRN Saline Lock Insert [OM.PC] Stat 05/07/20 02:30 Ang Pelvis [CT] Stat 05/07/20 02:56 Blood Culture x2 Reflex Set [OM.PC] Stat 05/07/20 03:10 CULTURE BLOOD [BC] Stat 05/07/20 03:20 CULTURE BLOOD [BC] Stat
[2020-05-07 01:28] LABS: BLOOD UREA NITROGEN,BUN 18 mg/dL (7.0-18.0); CHLORIDE,CL 92 mmol/L (98-107); GLUCOSE RANDOM 181 mg/dL (74-106); SODIUM,NA 135 mmol/L (136-145)
[2020-05-07 01:29] LABS: POTASSIUM,K 2.1 mmol/L (3.5-5.1)
[2020-05-07] MEDS ORDERED: Magnesium Sulfate/Water 2 GM in Premix Bag 1 BAG IV ONE ×2 (01:56→11:05)
[2020-05-07] MEDS ORDERED: Potassium Chloride Riders 20 MEQ in Premix Bag 1 BAG IV ONE (01:57)
[2020-05-07] MEDS ORDERED: Metoclopramide 10 MG/2 ML SDV IVPUSH ONE (01:58)
--- NOTE | 2020-05-07 02:04 | CR ---
INDICATION: Chest pain, epigastric pain TECHNIQUE: Chest radiograph 1 view COMPARISON: None FINDINGS: Mediastinum: The mediastinum is normal in appearance. The heart silhouette is normal in size and morphology. Lung: Both lungs are unremarkable in appearance. No sign of pleural effusion seen. No pneumothorax is identified. Bone and Soft tissue: Unremarkable for age. IMPRESSION: 1. No acute cardiopulmonary disease is seen. Dictated by: Fede Gutierrez MD @ 05/07/2020 02:03:58 (Electronically Signed)
[2020-05-07] MEDS ORDERED: fentaNYL 50 MCG/ML SDV IVPUSH ONE (02:18)
[2020-05-07] MEDS ORDERED: fentaNYL 50 MCG/ML SDV ONE (02:18)
[2020-05-07] MEDS ORDERED: Iopamidol 755 Mg/ML 100 ML Bottle IVPUSH ONE (02:32)
[2020-05-07] MEDS ORDERED: Acetaminophen 500 MG Tab PO ONE (02:32)
[2020-05-07] MEDS ORDERED: Ibuprofen 400 MG Tab PO ONE (02:32)
[2020-05-07] MEDS ORDERED: Potassium Chloride 10% 20 MEQ/15 ML Soln 30 ML UD Cup PO ONE (03:00)
[2020-05-07] MEDS ORDERED: Vancomycin 1.5 GM in Dextrose 5% in Water 250 ML IV ONE ×2 (03:20)
--- NOTE | 2020-05-07 03:20 | CT ---
INDICATION: Epigastric pain radiating to back TECHNIQUE: CT chest with i.v. contrast using pulmonary angiographic technique. Coronal and sagittal reformats were obtained. CONTRAST: 100 mL Isovue 370 COMPARISON: None FINDINGS: Cardiovascular: The pulmonary arteries are unremarkable in enhancement with no evidence of acute pulmonary embolism. The heart has an unremarkable appearance and size. No sign of aneurysm in the thoracic aorta. Mediastinum: No mass or adenopathy seen. Lung: Both lungs are unremarkable in appearance. There is a 1 mm subpleural nodule present in the posterior right upper lobe, too small further characterize. Pleura and pericardium: No sign of pleural effusion seen. No significant pericardial effusion is present. Chest wall and axilla: No mass or adenopathy seen. Bone: Unremarkable for age. IMPRESSION: 1. No CT evidence of acute pulmonary emboli seen. Dictated by Fede Gutierrez MD @ 05/07/2020 3:18:41 AM Please note that all CT scans at this facility use dose modulation, iterative reconstruction, and/or weight-based dosing when appropriate to reduce radiation dose to as low as reasonably achievable. Dictated by: Fede Gutierrez MD @ 05/07/2020 03:18:44 (Electronically Signed)
--- NOTE | 2020-05-07 03:22 | CT ---
INDICATION: Epigastric pain radiating to back TECHNIQUE: CT Abdomen and pelvis with i.v. contrast. Coronal and sagittal reformats were obtained. CONTRAST: 100 mL Isovue 370 COMPARISON: None FINDINGS: Liver: Unremarkable. Spleen: Unremarkable. Pancreas: Unremarkable. Gallbladder: Unremarkable. Kidney: Unremarkable. No kidney or ureteral stones or obstruction seen. Adrenal: Unremarkable. Bowel: Small sliding type esophageal hiatal hernia (type I) is present. The appendix is normal in appearance and size. Vascular: Unremarkable. Lymph: Unremarkable. Peritoneum: Unremarkable. No pneumoperitoneum is seen. No significant ascites is noted. Pelvis: The patient is status post prior hysterectomy. Soft tissue: Unremarkable. Bone: Unremarkable for age. IMPRESSION: 1. Unremarkable with no CT correlate for the patient`s symptoms seen. Dictated by Fede Gutierrez MD @ 05/07/2020 3:20:09 AM Please note that all CT scans at this facility use dose modulation, iterative reconstruction, and/or weight-based dosing when appropriate to reduce radiation dose to as low as reasonably achievable. Dictated by: Fede Gutierrez MD @ 05/07/2020 03:20:23 (Electronically Signed)
[2020-05-07] MEDS ORDERED: Meropenem 2 GM in Sodium Chloride 0.9% 100 ML IV ONE (03:23)
[2020-05-07] MEDS ORDERED: Vancomycin 1.5 GM in Dextrose 5% in Water 500 ML IV ONE ×2 (03:32)
--- NOTE | 2020-05-07 04:26 | US ---
INDICATION: Epigastric pain, leukocytosis TECHNIQUE: Ultrasound abdomen limited. Sonographic images of the gallbladder and biliary tree were obtained using broderick-scale and color Doppler images. COMPARISON: None FINDINGS: Liver: The liver parenchyma is normal in echotexture. Gallbladder: The neck of the gallbladder is not well demonstrated. The gallbladder wall is normal in appearance. No pericholecystic fluid is present. No sonographic [place] sign is present. Common bile duct: 7 mm. No intrahepatic biliary ductal dilatation seen. Vascular: The visualized aorta and IVC unremarkable in appearance. Miscellaneous: Right kidney: 10.3 cm. IMPRESSION: 1. The gallbladder is unremarkable in appearance. Dictated by Fede Gutierrez MD @ 05/07/2020 4:25:52 AM Dictated by: Fede Gutierrez MD @ 05/07/2020 04:26:09 (Electronically Signed)
[2020-05-07] MEDS ORDERED: Acetaminophen 500 MG Tab PO PRN (05:00)
[2020-05-07] MEDS ORDERED: Pantoprazole 40 MG in Sodium Chloride 0.9% 10 ML IV SCH (05:15)
[2020-05-07] MEDS: Lactated Ringers 1,000 ML IV SCH ×2 (05:48→15:11)
[2020-05-07] MEDS: Insulin Aspart 100 Units/ML 3 ML Pen SUBCUT SCH ×3 (06:43→16:57)
[2020-05-07 10:10] LABS: BLOOD UREA NITROGEN,BUN 12 mg/dL (7.0-18.0); CARBON DIOXIDE,CO2 25.6 mmol/L (21.0-32.0); CHLORIDE,CL 94 mmol/L (98-107); GLUCOSE RANDOM 267 mg/dL (74-106); POTASSIUM,K 2.7 mmol/L (3.5-5.1); SODIUM,NA 135 mmol/L (136-145)
[2020-05-07] MEDS ORDERED: Potassium Chloride Riders 40 MEQ in Premix Bag 1 BAG IV ONE (10:54)
--- NOTE | 2020-05-07 10:58 | PCM.HP.2 ---
H&P History of Present Illness - General Date of Service: 05/07/20 Admit Problem/Dx: Admission Diagnosis/Problem Admission Diagnosis/Problem Hypokalemia - History of Present Illness Initial Comments - Free Text/Narative: 44-year-old female past medical history of type 2 diabetes mellitus, hypertension, depression, seizure, GERD presenting with chest discomfort, nausea, several episodes of vomiting. Patient states her symptoms started in evening immediately after she had her dinner at a wedding she was attending. States she didn't drink much alcohol, patient states she started feeling diaphoretic, nauseated, and has experienced persistent vomiting, later she experienced intermittent numbness in both of her hands. Pain is also present in her upper back. No one else that ate the same food at the wedding became ill. Labs returned showing a significant leukocytosis with neutrophilic predominance. Lactate elevated at 3.6. Severe hypokalemia to 2.1. Urinalysis shows ketones but no evidence of blood or infection. Twelve-lead EKG obtained showing severe QT interval prolongation. Patient was given IV magnesium sulfate followed by IV and PO potassium chloride. She received IV fentanyl and antibiotic medications due to concern of possible severe sepsis, cultures were obtained however no source of infection was found on imaging. CT angiographic imaging of the chest, abdomen, and pelvis and ultrasound study of the abdomen were unremarkable. Patient was admitted to the hospital given her intractable N/V. , severe hypokalemia with ECG changes, Epigastric Pain Score (Numeric/FACES): 10 - Related Data Allergies/Adverse Reactions: Allergies Allergy/AdvReac Type Severity Reaction Status Date / Time aspirin Allergy Hives Verified 05/07/20 08:15 bee venom protein (honey bee) Allergy Anaphylactic Verified 05/07/20 08:15 Shock glyburide Allergy Hives Verified 05/07/20 08:15 ibuprofen Allergy Hives Verified 05/07/20 08:15 paroxetine HCl [From Paxil] Allergy Hives Verified 05/07/20 08:15 penicillin G Allergy Hives Verified 05/07/20 08:15 phenobarbital Allergy Hives Verified 05/07/20 08:15 sulfamethoxazole Allergy Hives Verified 05/07/20 08:15 [From Bactrim] trimethoprim [From Bactrim] Allergy Hives Verified 05/07/20 08:15 Home Medications: Home Meds Insulin Detemir [Levemir] 10 units SUBCUT BEDTIME 05/07/20 [History] Insulin Detemir [Levemir] 25 units SUBCUT DAILY 05/07/20 [History] Insulin Lispro [HumaLOG] 1 unit SUBCUT TIDMEALS 05/07/20 [History] Non-Formulary Medication [NF Drug] 05/07/20 [History] Omeprazole 20 mg PO DAILY 05/07/20 [History] Potassium Chloride [Klor-Con M20] 80 mg PO BID 05/07/20 [History] Sertraline [Zoloft] 50 mg PO DAILY 05/07/20 [History] SitaGLIPtin [Januvia] 50 mg PO DAILY 05/07/20 [History] levETIRAcetam [Keppra XR] 500 mg PO BID 05/07/20 [History] metFORMIN [Glucophage XR] 1,000 mg PO DAILY 05/07/20 [History] metOLazone [Metolazone] 2.5 mg PO DAILY 05/07/20 [History] Past Medical History Other HEENT History: wears glasses [employer] History: Reports: Endometriosis Neurological History: Reports: Seizure, Other (See Below) Other Neuro History: hx of Epilepsy, last seizure was 5 years ago, hx of motion sickness Psychiatric History: Reports: Anxiety, Depression Endocrine/Metabolic History: Reports: Diabetes, Type II - Infectious Disease History Infectious Disease History: Reports: None - Past Surgical History GI Surgical History: Reports: Hernia, Inguinal Female Surgical History: Reports: Hysterectomy Musculoskeletal Surgical History: Reports: Arthroscopic Knee Other Musculoskeletal Surgeries/Procedures:: bilateral Social & Family History - Family History Family Medical History: Noncontributory - Tobacco Use Smoking Status *Q: Never Smoker Second Hand Smoke Exposure: No - Caffeine Use Caffeine Use: Reports: None - Recreational Drug Use Recreational Drug Use: No H&P Review of Systems - Review of Systems: Review Of Systems: See Below General: Reports: Chills, Malaise, Weakness, Fatigue HEENT: Denies: Dysphasia, Ear Pain Pulmonary: Denies: Shortness of Breath, Wheezing, Pleuritic Chest Pain Cardiovascular: Denies: Chest Pain, Palpitations, Dyspnea on Exertion Gastrointestinal: Reports: Abdominal Pain, Anorexia, Decreased Appetite, Nausea, Vomiting. Denies: Black Stool, Bloody Stool, Constipation, Diarrhea, Difficulty Swallowing, Distension, Hematemesis, Hematochezia, Melena, Stool Incontinence Genitourinary: Denies: Dysuria, Frequency, Burning Musculoskeletal: Denies: Neck Pain, Shoulder Pain Skin: Denies: Cyanosis, Jaundice, Mottled Psychiatric: Denies: Confusion, Depression, Mood Lability Neurological: Denies: Confusion, Dizziness, Headache, Pre-Existing Deficit, Seizure Exam - Exam Exam: See Below - Vital Signs Vital Signs: Last Vital Signs Temp 36.5 C 05/07/20 04:50 Pulse 84 05/07/20 04:50 Resp 17 05/07/20 04:50 BP 126/62 05/07/20 04:50 Pulse Ox 100 05/07/20 04:50 Weight: 89.675 kg - Exam Quality Assessment: No: Supplemental Oxygen General: Alert, Oriented Neck: Trachea Midline, Full Range of Motion Lungs: Clear to Auscultation, Normal Respiratory Effort Cardiovascular: Regular Rate, Regular Rhythm, Normal S1, Normal S2 GI/Abdominal Exam: Normal Bowel Sounds, Soft, No Organomegaly, No Distention, No Mass, Tender (epigastric). No: Distended, Abnormal Bowel Sounds Extremities: Normal Inspection, Normal Range of Motion Peripheral Pulses: 3+: Dorsalis Pedis (L), Dorsalis Pedis (R) Skin: Warm, Dry - Patient Data Lab Results Last 24 hrs: Laboratory Results - last 24 hr 05/07/20 05/07/20 05/07/20 Range/Units 00:55 00:55 00:55 WBC 22.98 H (4.0-11.0) K/uL RBC 5.23 (4.30-5.90) M/uL Hgb 14.4 (12.0-16.0) g/dL Hct 41.0 (36.0-46.0) % MCV 78.4 L (80.0-98.0) fL MCH 27.5 (27.0-32.0) pg MCHC 35.1 (31.0-37.0) g/dL RDW Std Deviation 36.4 (28.0-62.0) fl RDW Coeff of Wil 13 (11.0-15.0) % Plt Count 314 (150-400) K/uL MPV 11.10 (7.40-12.00) fL Neut % (Auto) 82.2 H (48.0-80.0) % Lymph % (Auto) 11.4 L (16.0-40.0) % [place] % (Auto) 6.2 (0.0-15.0) % Eos % (Auto) 0.1 (0.0-7.0) % Baso % (Auto) 0.1 (0.0-1.5) % Neut # (Auto) 18.9 H (1.4-5.7) K/uL Lymph # (Auto) 2.6 H (0.6-2.4) K/uL [place] # (Auto) 1.4 H (0.0-0.8) K/uL Eos # (Auto) 0.0 (0.0-0.7) K/uL Baso # (Auto) 0.0 (0.0-0.1) K/uL Nucleated RBC % /100WBC Nucleated RBCs # K/uL INR Lactate (0.20-2.00) mmol/L Sodium 135 L (136-145) mmol/L Potassium 2.1 L* (3.5-5.1) mmol/L Chloride 92 L (98-107) mmol/L Carbon Dioxide 23.0 (21.0-32.0) mmol/L BUN 18 (7.0-18.0) mg/dL Creatinine 1.0 (0.6-1.0) mg/dL Est Cr Clr Drug Dosing 69.09 mL/min Estimated GFR (MDRD) 60.0 ml/min Glucose 181 H (74-106) mg/dL POC Glucose (60-110) mg/dL Calcium 9.8 (8.5-10.1) mg/dL Phosphorus (2.6-4.7) mg/dL Magnesium (1.8-2.4) mg/dL Total Bilirubin 0.6 (0.2-1.0) mg/dL AST 18 (15-37) IU/L ALT 21 (14-63) IU/L Alkaline Phosphatase 88 (46-116) U/L Troponin I < 0.050 (0.000-0.056) ng/mL Total Protein 7.7 (6.4-8.2) g/dL Albumin 4.2 (3.4-5.0) g/dL Globulin 3.5 (2.6-4.0) g/dL Albumin/Globulin Ratio 1.2 (0.9-1.6) Lipase (73-393) U/L HCG, Qual NEGATIVE (NEG) Urine Color Urine Appearance Urine pH (5.0-8.0) Ur Specific [place] (1.001-1.035) Urine Protein (NEGATIVE) mg/dL Urine Glucose (UA) (NEGATIVE) mg/dL Urine Ketones (NEGATIVE) mg/dL Urine Occult Blood (NEGATIVE) Urine Nitrite (NEGATIVE) Urine Bilirubin (NEGATIVE) Urine Urobilinogen (<2.0) EU/dL Ur Leukocyte Esterase (NEGATIVE) SARS-CoV-2 RNA (RT-PCR) (NEGATIVE) 05/07/20 05/07/20 05/07/20 Range/Units 00:55 00:55 00:55 WBC (4.0-11.0) K/uL RBC (4.30-5.90) M/uL Hgb (12.0-16.0) g/dL Hct (36.0-46.0) % MCV (80.0-98.0) fL MCH (27.0-32.0) pg MCHC (31.0-37.0) g/dL RDW Std Deviation (28.0-62.0) fl RDW Coeff of Wil (11.0-15.0) % Plt Count (150-400) K/uL MPV (7.40-12.00) fL Neut % (Auto) (48.0-80.0) % Lymph % (Auto) (16.0-40.0) % [place] % (Auto) (0.0-15.0) % Eos % (Auto) (0.0-7.0) % Baso % (Auto) (0.0-1.5) % Neut # (Auto) (1.4-5.7) K/uL Lymph # (Auto) (0.6-2.4) K/uL [place] # (Auto) (0.0-0.8) K/uL Eos # (Auto) (0.0-0.7) K/uL Baso # (Auto) (0.0-0.1) K/uL Nucleated RBC % /100WBC Nucleated RBCs # K/uL INR 1.01 Lactate 3.6 H* (0.20-2.00) mmol/L Sodium (136-145) mmol/L Potassium (3.5-5.1) mmol/L Chloride (98-107) mmol/L Carbon Dioxide (21.0-32.0) mmol/L BUN (7.0-18.0) mg/dL Creatinine (0.6-1.0) mg/dL Est Cr Clr Drug Dosing mL/min Estimated GFR (MDRD) ml/min Glucose (74-106) mg/dL POC Glucose (60-110) mg/dL Calcium (8.5-10.1) mg/dL Phosphorus (2.6-4.7) mg/dL Magnesium (1.8-2.4) mg/dL Total Bilirubin (0.2-1.0) mg/dL AST (15-37) IU/L ALT (14-63) IU/L Alkaline Phosphatase (46-116) U/L Troponin I (0.000-0.056) ng/mL Total Protein (6.4-8.2) g/dL Albumin (3.4-5.0) g/dL Globulin (2.6-4.0) g/dL Albumin/Globulin Ratio (0.9-1.6) Lipase 64 L (73-393) U/L HCG, Qual (NEG) Urine Color Urine Appearance Urine pH (5.0-8.0) Ur Specific [place] (1.001-1.035) Urine Protein (NEGATIVE) mg/dL Urine Glucose (UA) (NEGATIVE) mg/dL Urine Ketones (NEGATIVE) mg/dL Urine Occult Blood (NEGATIVE) Urine Nitrite (NEGATIVE) Urine Bilirubin (NEGATIVE) Urine Urobilinogen (<2.0) EU/dL Ur Leukocyte Esterase (NEGATIVE) SARS-CoV-2 RNA (RT-PCR) (NEGATIVE) 05/07/20 05/07/20 05/07/20 Range/Units 02:55 04:00 05:00 WBC (4.0-11.0) K/uL RBC (4.30-5.90) M/uL Hgb (12.0-16.0) g/dL Hct (36.0-46.0) % MCV (80.0-98.0) fL MCH (27.0-32.0) pg MCHC (31.0-37.0) g/dL RDW Std Deviation (28.0-62.0) fl RDW Coeff of Wil (11.0-15.0) % Plt Count (150-400) K/uL MPV (7.40-12.00) fL Neut % (Auto) (48.0-80.0) % Lymph % (Auto) (16.0-40.0) % [place] % (Auto) (0.0-15.0) % Eos % (Auto) (0.0-7.0) % Baso % (Auto) (0.0-1.5) % Neut # (Auto) (1.4-5.7) K/uL Lymph # (Auto) (0.6-2.4) K/uL [place] # (Auto) (0.0-0.8) K/uL Eos # (Auto) (0.0-0.7) K/uL Baso # (Auto) (0.0-0.1) K/uL Nucleated RBC % /100WBC Nucleated RBCs # K/uL INR Lactate 1.7 (0.20-2.00) mmol/L Sodium (136-145) mmol/L Potassium (3.5-5.1) mmol/L Chloride (98-107) mmol/L Carbon Dioxide (21.0-32.0) mmol/L BUN (7.0-18.0) mg/dL Creatinine (0.6-1.0) mg/dL Est Cr Clr Drug Dosing mL/min Estimated GFR (MDRD) ml/min Glucose (74-106) mg/dL POC Glucose (60-110) mg/dL Calcium (8.5-10.1) mg/dL Phosphorus (2.6-4.7) mg/dL Magnesium (1.8-2.4) mg/dL Total Bilirubin (0.2-1.0) mg/dL AST (15-37) IU/L ALT (14-63) IU/L Alkaline Phosphatase (46-116) U/L Troponin I (0.000-0.056) ng/mL Total Protein (6.4-8.2) g/dL Albumin (3.4-5.0) g/dL Globulin (2.6-4.0) g/dL Albumin/Globulin Ratio (0.9-1.6) Lipase (73-393) U/L HCG, Qual (NEG) Urine Color YELLOW Urine Appearance CLEAR Urine pH 5.5 (5.0-8.0) Ur Specific [place] 1.010 (1.001-1.035) Urine Protein NEGATIVE (NEGATIVE) mg/dL Urine Glucose (UA) NEGATIVE (NEGATIVE) mg/dL Urine Ketones 40 H (NEGATIVE) mg/dL Urine Occult Blood NEGATIVE (NEGATIVE) Urine Nitrite NEGATIVE (NEGATIVE) Urine Bilirubin NEGATIVE (NEGATIVE) Urine Urobilinogen 0.2 (<2.0) EU/dL Ur Leukocyte Esterase NEGATIVE (NEGATIVE) SARS-CoV-2 RNA (RT-PCR) NEGATIVE (NEGATIVE) 05/07/20 05/07/20 05/07/20 Range/Units 06:28 09:35 09:35 WBC 16.30 H (4.0-11.0) K/uL RBC 4.80 (4.30-5.90) M/uL Hgb 13.4 (12.0-16.0) g/dL Hct 38.8 (36.0-46.0) % MCV 80.8 (80.0-98.0) fL MCH 27.9 (27.0-32.0) pg MCHC 34.5 (31.0-37.0) g/dL RDW Std Deviation 38.6 (28.0-62.0) fl RDW Coeff of Wil 13 (11.0-15.0) % Plt Count 300 (150-400) K/uL MPV 10.50 (7.40-12.00) fL Neut % (Auto) 88.7 H (48.0-80.0) % Lymph % (Auto) 8.2 L (16.0-40.0) % [place] % (Auto) 3.0 (0.0-15.0) % Eos % (Auto) 0.0 (0.0-7.0) % Baso % (Auto) 0.1 (0.0-1.5) % Neut # (Auto) 14.5 H (1.4-5.7) K/uL Lymph # (Auto) 1.3 (0.6-2.4) K/uL [place] # (Auto) 0.5 (0.0-0.8) K/uL Eos # (Auto) 0.0 (0.0-0.7) K/uL Baso # (Auto) 0.0 (0.0-0.1) K/uL Nucleated RBC % 0.0 /100WBC Nucleated RBCs # 0 K/uL INR Lactate (0.20-2.00) mmol/L Sodium 135 L (136-145) mmol/L Potassium 2.7 L (3.5-5.1) mmol/L Chloride 94 L (98-107) mmol/L Carbon Dioxide 25.6 (21.0-32.0) mmol/L BUN 12 (7.0-18.0) mg/dL Creatinine 0.9 (0.6-1.0) mg/dL Est Cr Clr Drug Dosing 76.76 mL/min Estimated GFR (MDRD) > 60.0 ml/min Glucose 267 H (74-106) mg/dL POC Glucose 251 H (60-110) mg/dL Calcium 8.8 (8.5-10.1) mg/dL Phosphorus 3.9 (2.6-4.7) mg/dL Magnesium 1.8 (1.8-2.4) mg/dL Total Bilirubin (0.2-1.0) mg/dL AST (15-37) IU/L ALT (14-63) IU/L Alkaline Phosphatase (46-116) U/L Troponin I (0.000-0.056) ng/mL Total Protein (6.4-8.2) g/dL Albumin (3.4-5.0) g/dL Globulin (2.6-4.0) g/dL Albumin/Globulin Ratio (0.9-1.6) Lipase (73-393) U/L HCG, Qual (NEG) Urine Color Urine Appearance Urine pH (5.0-8.0) Ur Specific [place] (1.001-1.035) Urine Protein (NEGATIVE) mg/dL Urine Glucose (UA) (NEGATIVE) mg/dL Urine Ketones (NEGATIVE) mg/dL Urine Occult Blood (NEGATIVE) Urine Nitrite (NEGATIVE) Urine Bilirubin (NEGATIVE) Urine Urobilinogen (<2.0) EU/dL Ur Leukocyte Esterase (NEGATIVE) SARS-CoV-2 RNA (RT-PCR) (NEGATIVE) Result Diagrams: 05/07/20 09:35 05/07/20 09:35 Jordy Results Last 24 hrs: Microbiology 05/07/20 03:20 Anaerobic Blood Culture - Final Blood - Venous - Lab Draw 05/07/20 03:10 Anaerobic Blood Culture - Final Blood - Venous Sepsis Event Note - Evaluation Sepsis Screening Result: No Definite Risk - Focused Exam Vital Signs: Vital Signs Temp Pulse Resp BP Pulse Ox 05/07/20 04:50 36.5 C 84 17 126/62 100 05/07/20 04:17 79 12 123/67 100 05/07/20 03:16 82 12 129/52 L 99 05/07/20 02:14 64 18 136/64 99 05/07/20 01:18 73 21 H 132/72 100 05/07/20 01:06 35.8 C L 83 20 99/66 100 Date Exam was Performed: 05/07/20 Time Exam was Performed: 13:06 - Problem List (1) Epigastric abdominal pain SNOMED Code(s): 17479077 ICD Code: R10.13 - EPIGASTRIC PAIN Status: Acute Current Visit: Yes (2) Hypokalemia SNOMED Code(s): 32807417 ICD Code: E87.6 - HYPOKALEMIA Status: Acute Current Visit: Yes (3) Nausea and vomiting SNOMED Code(s): 86453063 ICD Code: R11.2 - NAUSEA WITH VOMITING, UNSPECIFIED Status: Acute Current Visit: Yes Qualifiers: Vomiting type: unspecified Vomiting Intractability: non-intractable Qualified Code(s): R11.2 - Nausea with vomiting, unspecified (4) Gastritis SNOMED Code(s): 7470326 ICD Code: K29.70 - GASTRITIS, UNSPECIFIED, WITHOUT BLEEDING Status: Acute Current Visit: No Problem List Initiated/Reviewed/Updated: Yes Orders Last 24hrs: Active Orders 24 hr Category Date Time Status Admission Status [Patient Status] [ADT] Stat ADT 05/07/20 03:33 Active Activity as Tolerated [RC] .Routine Care 05/07/20 04:51 Active Antiembolic Devices [RC] PER UNIT ROUTINE Care 05/07/20 04:54 Active Blood Glucose Check, Bedside [RC] TIDAC Care 05/07/20 04:53 Active Cardiac Monitoring [RC] . DIRECTED Care 05/07/20 00:59 Active EKG 12 Lead [EKG Documentation Completion] [RC] AM Care 05/07/20 07:00 Active EKG 12 Lead [EKG Documentation Completion] [RC] STAT Care 05/07/20 00:52 Active Oxygen Therapy [RC] ASDIRECTED Care 05/07/20 04:50 Active Pulse Oximetry [RC] ASDIRECTED Care 05/07/20 00:59 Active Pulse Oximetry [RC] ASDIRECTED Care 05/07/20 04:50 Active Telemetry Monitoring [Cardiac Monitoring] [RC] . Care 05/07/20 04:57 Active DIRECTED Vital Signs [RC] Q4H Care 05/07/20 04:49 Active NPO [Nothing Per Oral Diet] [DIET] Diet 05/07/20 Lunch Active Ang Pelvis [CT] Stat Exams 05/07/20 02:30 Taken CULTURE BLOOD [BC] Stat Lab 05/07/20 03:10 Results CULTURE BLOOD [BC] Stat Lab 05/07/20 03:20 Results GLYCOSYLATED HEMOGLOBIN,HGBA1C [CHEM] Routine Lab 05/07/20 10:57 Ordered Acetaminophen [Tylenol Extra Strength] Med 05/07/20 05:00 Active 500 mg PO Q4H PRN Insulin Aspart [NovoLOG] Med 05/07/20 07:30 Active See Protocol SUBCUT TIDAC Lactated Ringers [Ringers, Lactated] 1,000 ml Med 05/07/20 05:00 Active IV ASDIRECTED Meropenem Premix [Meropenem] 1 gm Med 05/07/20 16:00 Active Premix Bag 1 bag IV Q12H Morphine Sulfate [Morphine] Med 05/07/20 05:03 Active 1 mg IVPUSH Q4H PRN Pantoprazole [ProTONIX IV] 40 mg Med 05/07/20 05:15 Active Sodium Chloride 0.9% [Normal Saline] 10 ml IV Q24H Potassium Chloride Riders [KCL 40 MEQ in Water 100 ML] Med 05/07/20 10:54 Active 40 meq Premix Bag 1 bag IV ONETIME Sodium Chloride 0.9% [Saline Flush] Med 05/07/20 00:59 Active 10 ml FLUSH ASDIRECTED PRN Sodium Chloride 0.9% [Saline Flush] Med 05/07/20 00:59 Active 2.5 ml FLUSH ASDIRECTED PRN Vancomycin 1.25 gm Med 05/07/20 15:00 Active Sodium Chloride 0.9% [Normal Saline (AdvBag)] 250 ml IV Q12H Blood Culture x2 Reflex Set [OM.PC] Stat Oth 05/07/20 02:56 Ordered SCD [Sequential Compression Device] [OM.PC] Routine Oth 05/07/20 04:54 Ordered Saline Lock Insert [.PC] Stat Ot 05/07/20 00:59 Ordered Medication Orders Acetaminophen (Tylenol Extra Strength) 500 mg PO Q4H PRN PRN Reason: fever/pain Lactated Ringer's (Ringers, Lactated) 1,000 mls @ 125 mls/hr IV ASDIRECTED REPLACED BY [facility] Last Admin: 05/07/20 05:48 Dose: 125 mls/hr Documented by: LYDIA Pantoprazole Sodium 40 mg/ (Sodium Chloride) 10 mls @ 300 mls/hr IV Q24H REPLACED BY [facility] Last Admin: 05/07/20 05:48 Dose: 300 mls/hr Documented by: LYDIA Meropenem/Sodium Chloride 1 gm (/ Premix) 50 mls @ 100 mls/hr IV Q12H [place] Vancomycin HCl 1.25 gm/ Sodium (Chloride) 250 mls @ 167 mls/hr IV Q12H [place] Potassium Chloride 40 meq/ (Premix) 100 mls @ 25 mls/hr IV ONETIME ONE Stop: 05/07/20 14:53 Insulin Aspart (Novolog) 0 unit SUBCUT TIDAC REPLACED BY [facility]; Protocol Last Admin: 05/07/20 06:43 Dose: 3 units Documented by: LYDIA Morphine Sulfate (Morphine) 1 mg IVPUSH Q4H PRN PRN Reason: Pain Sodium Chloride (Saline Flush) 10 ml FLUSH ASDIRECTED PRN PRN Reason: Keep Vein Open Sodium Chloride (Saline Flush) 2.5 ml FLUSH ASDIRECTED PRN PRN Reason: Keep Vein Open Assessment/Plan Comment:: 44 y/o F admitted for intractable N/V, severe hypokalemia, prolonged Qtc Admit to tele Keep patient NPO till nausea resolves, ice chips ok start IV fluids LR @ 125 cc/hr I doubt there is sepsis/infection, WBC count likely all reactive, likely gastritis Will cont IV antibiotics and dc/ deescalate if no signs of sepsis,and/or cultures negative Aggressive repletion of potassium by IV, repeat EKG to fu on Qtc IV PPI daily, Zofran as needed ( watch for Qtc) SCD for DVT ppx Anion Gap is elevated but blood sugars arent that high, cont SSI as needed
[2020-05-07] MEDS ORDERED: Pantoprazole 40 MG in Sodium Chloride 0.9% 10 ML IV ONE (11:39)
[2020-05-07 11:41] LABS: HEMOGLOBIN A1C 7.9 % (4.5-6.2)
[2020-05-07] MEDS: Morphine 2 MG/ML SYRINGE IVPUSH PRN (13:34)
[2020-05-07] MEDS: Meropenem Premix 1 GM in Premix Bag 1 BAG IV SCH (16:47)
[2020-05-07] MEDS: LEVETIRACETAM 500 MG PO SCH (20:20)
[2020-05-07] MEDS: Insulin Detemir 100 Units/ML 3 ML Pen SUBCUT SCH (20:44)
[2020-05-08] MEDS: Lactated Ringers 1,000 ML IV SCH ×3 (01:08→20:50)
[2020-05-08] MEDS: Meropenem Premix 1 GM in Premix Bag 1 BAG IV SCH (03:57)
[2020-05-08] MEDS: Insulin Aspart 100 Units/ML 3 ML Pen SUBCUT SCH ×3 (06:03→17:01)
[2020-05-08 06:27] LABS: BLOOD UREA NITROGEN,BUN 6 mg/dL (7.0-18.0); CARBON DIOXIDE,CO2 31.5 mmol/L (21.0-32.0); CHLORIDE,CL 102 mmol/L (98-107); GLUCOSE RANDOM 119 mg/dL (74-106); POTASSIUM,K 2.9 mmol/L (3.5-5.1); SODIUM,NA 140 mmol/L (136-145)
[2020-05-08] MEDS ORDERED: Magnesium Sulfate/Water 2 GM in Premix Bag 1 BAG IV ONE (09:30)
[2020-05-08] MEDS: Ondansetron 4 MG/2 ML SDV IVPUSH PRN ×3 (09:49→20:57)
[2020-05-08] MEDS: LEVETIRACETAM 500 MG PO SCH ×2 (09:54→21:03)
[2020-05-08] MEDS: Sertraline 50 MG Tab PO SCH (09:54)
[2020-05-08] MEDS ORDERED: diphenhydrAMINE 50 MG/ML SDV IVPUSH ONE (10:21)
[2020-05-08] MEDS: Morphine 2 MG/ML SYRINGE IVPUSH PRN ×3 (10:32→20:57)
[2020-05-08] MEDS: Pantoprazole 40 MG in Sodium Chloride 0.9% 10 ML IV SCH (10:35)
[2020-05-08 11:31] LABS: BILIRUBIN INDIRECT 0.6
--- NOTE | 2020-05-08 11:49 | PCM.PN ---
- General Info Date of Service: 05/08/20 Admission Dx/Problem (Free Text): Admission Diagnosis/Problem Admission Diagnosis/Problem Hypokalemia Subjective Update: seen at bedside, overnight was comfortable, this AM started feeling nausea and vomited small amount of liquid. Epigastric discomfort - Review of Systems General: Reports: Fatigue, Malaise. Denies: Fever, Weakness Pulmonary: Denies: Shortness of Breath, Pleuritic Chest Pain Cardiovascular: Denies: Chest Pain, Palpitations, Dyspnea on Exertion Gastrointestinal: Reports: Constipation, Decreased Appetite, Nausea, Vomiting. Denies: Diarrhea, Difficulty Swallowing, Hematochezia, Melena Genitourinary: Denies: Dysuria, Frequency, Burning Musculoskeletal: Denies: Neck Pain, Shoulder Pain, Arm Pain Skin: Denies: Cyanosis, Jaundice, Mottled - Patient Data Vitals - Most Recent: Last Vital Signs Temp 36.3 C 05/08/20 08:00 Pulse 66 05/08/20 08:00 Resp 16 05/08/20 08:00 BP 122/53 L 05/08/20 08:00 Pulse Ox 98 05/08/20 08:00 Weight - Most Recent: 89.675 kg I&O - Last 24 Hours: Intake & Output 05/07/20 05/08/20 05/08/20 22:59 06:59 14:59 Intake Total 2984 2347 Output Total 1000 500 Balance 1984 1847 Lab Results Last 24 Hours: Laboratory Results - last 24 hr 05/07/20 05/07/20 05/07/20 Range/Units 11:52 13:17 16:55 WBC (4.0-11.0) K/uL RBC (4.30-5.90) M/uL Hgb (12.0-16.0) g/dL Hct (36.0-46.0) % MCV (80.0-98.0) fL MCH (27.0-32.0) pg MCHC (31.0-37.0) g/dL RDW Std Deviation (28.0-62.0) fl RDW Coeff of Wil (11.0-15.0) % Plt Count (150-400) K/uL MPV (7.40-12.00) fL Neut % (Auto) (48.0-80.0) % Lymph % (Auto) (16.0-40.0) % Mathews % (Auto) (0.0-15.0) % Eos % (Auto) (0.0-7.0) % Baso % (Auto) (0.0-1.5) % Neut # (Auto) (1.4-5.7) K/uL Lymph # (Auto) (0.6-2.4) K/uL Mathews # (Auto) (0.0-0.8) K/uL Eos # (Auto) (0.0-0.7) K/uL Baso # (Auto) (0.0-0.1) K/uL Nucleated RBC % /100WBC Nucleated RBCs # K/uL Sodium (136-145) mmol/L Potassium (3.5-5.1) mmol/L Chloride (98-107) mmol/L Carbon Dioxide (21.0-32.0) mmol/L BUN (7.0-18.0) mg/dL Creatinine (0.6-1.0) mg/dL Est Cr Clr Drug Dosing mL/min Estimated GFR (MDRD) ml/min Glucose (74-106) mg/dL POC Glucose 254 H 255 H 179 H (60-110) mg/dL Calcium (8.5-10.1) mg/dL Phosphorus (2.6-4.7) mg/dL Magnesium (1.8-2.4) mg/dL Total Bilirubin (0.2-1.0) mg/dL Direct Bilirubin (0.0-0.5) mg/dL Indirect Bilirubin AST (15-37) IU/L ALT (14-63) IU/L Alkaline Phosphatase (46-116) U/L Total Protein (6.4-8.2) g/dL Albumin (3.4-5.0) g/dL Globulin (2.6-4.0) g/dL Albumin/Globulin Ratio (0.9-1.6) 05/07/20 05/08/20 05/08/20 Range/Units 19:40 06:00 06:00 WBC 8.05 (4.0-11.0) K/uL RBC 4.20 L (4.30-5.90) M/uL Hgb 11.3 L (12.0-16.0) g/dL Hct 35.0 L (36.0-46.0) % MCV 83.3 (80.0-98.0) fL MCH 26.9 L (27.0-32.0) pg MCHC 32.3 (31.0-37.0) g/dL RDW Std Deviation 40.7 (28.0-62.0) fl RDW Coeff of Wil 13 (11.0-15.0) % Plt Count 225 (150-400) K/uL MPV 10.60 (7.40-12.00) fL Neut % (Auto) 59.7 (48.0-80.0) % Lymph % (Auto) 30.7 (16.0-40.0) % Mathews % (Auto) 8.8 (0.0-15.0) % Eos % (Auto) 0.7 (0.0-7.0) % Baso % (Auto) 0.1 (0.0-1.5) % Neut # (Auto) 4.8 (1.4-5.7) K/uL Lymph # (Auto) 2.5 H (0.6-2.4) K/uL Mathews # (Auto) 0.7 (0.0-0.8) K/uL Eos # (Auto) 0.1 (0.0-0.7) K/uL Baso # (Auto) 0.0 (0.0-0.1) K/uL Nucleated RBC % 0.0 /100WBC Nucleated RBCs # 0 K/uL Sodium 140 (136-145) mmol/L Potassium 2.9 L (3.5-5.1) mmol/L Chloride 102 (98-107) mmol/L Carbon Dioxide 31.5 (21.0-32.0) mmol/L BUN 6 L (7.0-18.0) mg/dL Creatinine 0.7 (0.6-1.0) mg/dL Est Cr Clr Drug Dosing 98.69 mL/min Estimated GFR (MDRD) > 60.0 ml/min Glucose 119 H (74-106) mg/dL POC Glucose 144 H (60-110) mg/dL Calcium 8.3 L (8.5-10.1) mg/dL Phosphorus 2.2 L (2.6-4.7) mg/dL Magnesium 1.8 (1.8-2.4) mg/dL Total Bilirubin (0.2-1.0) mg/dL Direct Bilirubin (0.0-0.5) mg/dL Indirect Bilirubin AST (15-37) IU/L ALT (14-63) IU/L Alkaline Phosphatase (46-116) U/L Total Protein (6.4-8.2) g/dL Albumin (3.4-5.0) g/dL Globulin (2.6-4.0) g/dL Albumin/Globulin Ratio (0.9-1.6) 05/08/20 05/08/20 Range/Units 06:00 06:00 WBC (4.0-11.0) K/uL RBC (4.30-5.90) M/uL Hgb (12.0-16.0) g/dL Hct (36.0-46.0) % MCV (80.0-98.0) fL MCH (27.0-32.0) pg MCHC (31.0-37.0) g/dL RDW Std Deviation (28.0-62.0) fl RDW Coeff of Wil (11.0-15.0) % Plt Count (150-400) K/uL MPV (7.40-12.00) fL Neut % (Auto) (48.0-80.0) % Lymph % (Auto) (16.0-40.0) % Mathews % (Auto) (0.0-15.0) % Eos % (Auto) (0.0-7.0) % Baso % (Auto) (0.0-1.5) % Neut # (Auto) (1.4-5.7) K/uL Lymph # (Auto) (0.6-2.4) K/uL Mathews # (Auto) (0.0-0.8) K/uL Eos # (Auto) (0.0-0.7) K/uL Baso # (Auto) (0.0-0.1) K/uL Nucleated RBC % /100WBC Nucleated RBCs # K/uL Sodium (136-145) mmol/L Potassium (3.5-5.1) mmol/L Chloride (98-107) mmol/L Carbon Dioxide (21.0-32.0) mmol/L BUN (7.0-18.0) mg/dL Creatinine (0.6-1.0) mg/dL Est Cr Clr Drug Dosing mL/min Estimated GFR (MDRD) ml/min Glucose (74-106) mg/dL POC Glucose 103 (60-110) mg/dL Calcium (8.5-10.1) mg/dL Phosphorus (2.6-4.7) mg/dL Magnesium (1.8-2.4) mg/dL Total Bilirubin 0.7 (0.2-1.0) mg/dL Direct Bilirubin 0.10 (0.0-0.5) mg/dL Indirect Bilirubin 0.60 AST 16 (15-37) IU/L ALT 20 (14-63) IU/L Alkaline Phosphatase 56 (46-116) U/L Total Protein 5.3 L (6.4-8.2) g/dL Albumin 2.8 L (3.4-5.0) g/dL Globulin 2.5 L (2.6-4.0) g/dL Albumin/Globulin Ratio 1.1 (0.9-1.6) Jordy Results Last 24 Hours: Microbiology 05/07/20 03:20 Aerobic Blood Culture - Preliminary Blood - Venous - Lab Draw NO GROWTH AFTER 1 DAY Anaerobic Blood Culture - Final 05/07/20 03:10 Aerobic Blood Culture - Preliminary Blood - Venous NO GROWTH AFTER 1 DAY Anaerobic Blood Culture - Final Med Orders - Current: Current Medications Acetaminophen (Tylenol Extra Strength) 500 mg PO Q4H PRN PRN Reason: fever/pain Lactated Ringer's (Ringers, Lactated) 1,000 mls @ 125 mls/hr IV ASDIRECTED [facility] Last Admin: 05/08/20 01:08 Dose: 125 mls/hr Documented by: Potassium Chloride 60 meq/ (Sodium Chloride) 530 mls @ 88.333 mls/hr IV ONETIME ONE Stop: 05/08/20 15:39 Last Admin: 05/08/20 09:55 Dose: 88.333 mls/hr Documented by: Pantoprazole Sodium 40 mg/ (Sodium Chloride) 10 mls @ 300 mls/hr IV Q24H [facility] Last Admin: 05/08/20 10:35 Dose: 300 mls/hr Documented by: Insulin [facility] (Novolog) [facility] Last Admin: 05/08/20 06:03 Dose: Not Given Documented by: Insulin Detemir (Levemir) 15 unit SUBCUT BEDTIME [facility] Last Admin: 05/07/20 20:44 Dose: 10 units Documented by: Morphine Sulfate (Morphine) 1 mg IVPUSH Q4H PRN PRN Reason: Pain Last Admin: 05/08/20 10:32 Dose: 1 mg Documented by: Ondansetron HCl (Zofran) 4 mg IVPUSH Q6H PRN PRN Reason: Nausea/Vomiting Last Admin: 05/08/20 09:49 Dose: 4 mg Documented by: Levetiracetam [ (Keppra] 500 Mg) 1 each PO BID [facility] Last Admin: 05/08/20 09:54 Dose: 1 each Documented by: Sertraline HCl (Zoloft) 50 mg PO DAILY [facility] Last Admin: 05/08/20 09:54 Dose: 50 mg Documented by: Sodium Chloride (Saline Flush) 10 ml FLUSH ASDIRECTED PRN PRN Reason: Keep Vein Open Sodium Chloride (Saline Flush) 2.5 ml FLUSH ASDIRECTED PRN PRN Reason: Keep Vein Open Discontinued Medications Acetaminophen (Tylenol Extra Strength) 1,000 mg PO ONETIME ONE Stop: 05/07/20 02:33 Last Admin: 05/07/20 03:47 Dose: Not Given Documented by: Diphenhydramine HCl (Benadryl) 25 mg IVPUSH ONETIME ONE Stop: 05/08/20 10:22 Last Admin: 05/08/20 10:36 Dose: 25 mg Documented by: Fentanyl (Fentanyl) Confirm Administered Dose 50 mcg .ROUTE .STK-MED ONE Stop: 05/07/20 02:19 Last Admin: 05/07/20 02:57 Dose: 50 mcg Documented by: Fentanyl (Fentanyl) 50 mcg IVPUSH ONETIME ONE Stop: 05/07/20 02:19 Last Admin: 05/07/20 03:04 Dose: Not Given Documented by: Lactated Ringer's (Ringers, Lactated) 1,000 mls @ 999 mls/hr IV .BOLUS ONE Stop: 05/07/20 02:11 Last Admin: 05/07/20 01:15 Dose: 999 mls/hr Documented by: Magnesium Sulfate 2 gm/ Premix 50 mls @ 50 mls/hr IV ONETIME ONE Stop: 05/07/20 02:55 Last Admin: 05/07/20 02:08 Dose: 50 mls/hr Documented by: Potassium Chloride 20 meq/ (Premix) 50 mls @ 25 mls/hr IV ONETIME ONE Stop: 05/07/20 03:56 Last Infusion: 05/07/20 03:48 Dose: 20 mls/hr Documented by: Vancomycin HCl 1.5 gm/ (Dextrose/Water) 250 mls @ 167 mls/hr IV ONETIME ONE Stop: 05/07/20 04:49 Last Admin: 05/07/20 06:48 Dose: Not Given Documented by: Meropenem 2 gm/ Sodium (Chloride) 100 mls @ 100 mls/hr IV ONETIME ONE Stop: 05/07/20 04:22 Last Admin: 05/07/20 03:50 Dose: 100 mls/hr Documented by: Vancomycin HCl 1.5 gm/ (Dextrose/Water) 500 mls @ 334.014 mls/hr IV ONETIME ONE Stop: 05/07/20 04:49 Last Admin: 05/07/20 04:04 Dose: 334.014 mls/hr Documented by: Pantoprazole Sodium 40 mg/ (Sodium Chloride) 10 mls @ 300 mls/hr IV Q24H [facility] Last Admin: 05/07/20 05:48 Dose: 300 mls/hr Documented by: Vancomycin HCl 1 gm/ Sodium (Chloride) 250 mls @ 166 mls/hr IV Q12H [facility] Meropenem/Sodium Chloride 1 gm (/ Premix) 50 mls @ 100 mls/hr IV Q12H [facility] Last Admin: 05/08/20 03:57 Dose: 100 mls/hr Documented by: Vancomycin HCl 1.25 gm/ Sodium (Chloride) 250 mls @ 167 mls/hr IV Q12H [facility] Last Admin: 05/08/20 02:26 Dose: 167 mls/hr Documented by: Potassium Chloride 40 meq/ (Premix) 100 mls @ 25 mls/hr IV ONETIME ONE Stop: 05/07/20 14:53 Last Admin: 05/07/20 11:47 Dose: 25 mls/hr Documented by: Lactated Ringer's (Ringers, Lactated) 1,000 mls @ 999 mls/hr IV .BOLUS ONE Stop: 05/07/20 12:04 Last Admin: 05/07/20 11:59 Dose: 999 mls/hr Documented by: Magnesium Sulfate 2 gm/ Premix 50 mls @ 50 mls/hr IV ONETIME ONE Stop: 05/07/20 12:04 Last Admin: 05/07/20 12:00 Dose: 50 mls/hr Documented by: Pantoprazole Sodium 40 mg/ (Sodium Chloride) 10 mls @ 300 mls/hr IV ONETIME ONE Stop: 05/07/20 11:40 Last Admin: 05/07/20 12:00 Dose: 300 mls/hr Documented by: Lactated Ringer's (Ringers, Lactated) 1,000 mls @ 999 mls/hr IV .BOLUS ONE Stop: 05/08/20 00:49 Last Admin: 05/08/20 00:00 Dose: 999 mls/hr Documented by: Magnesium Sulfate 2 gm/ Premix 50 mls @ 50 mls/hr IV ONETIME ONE Stop: 05/08/20 10:29 Last Admin: 05/08/20 09:55 Dose: 50 mls/hr Documented by: Ibuprofen (Motrin) 400 mg PO ONETIME ONE Stop: 05/07/20 02:33 Last Admin: 05/07/20 03:16 Dose: Not Given Documented by: Iopamidol (Isovue-370 (76%)) 100 ml IVPUSH ONETIME ONE Stop: 05/07/20 02:33 Last Admin: 05/07/20 02:32 Dose: 100 ml Documented by: Metoclopramide HCl (Reglan) 10 mg IVPUSH ONETIME ONE Stop: 05/07/20 01:59 Last Admin: 05/07/20 02:07 Dose: 10 mg Documented by: Ondansetron HCl (Zofran) 4 mg IVPUSH ONETIME ONE Stop: 05/07/20 01:00 Last Admin: 05/07/20 01:09 Dose: 4 mg Documented by: Ondansetron HCl (Zofran) Confirm Administered Dose 4 mg .ROUTE .STK-MED ONE Stop: 05/07/20 01:01 Last Admin: 05/07/20 01:15 Dose: Not Given Documented by: Ondansetron HCl (Zofran) 4 mg IVPUSH ONETIME ONE Stop: 05/07/20 09:55 Last Admin: 05/07/20 11:45 Dose: 4 mg Documented by: Potassium Chloride (Potassium Chloride) 60 meq PO ONETIME ONE Stop: 05/07/20 03:01 Last Admin: 05/07/20 03:06 Dose: 60 meq Documented by: - Exam General: Alert, Oriented Neck: Supple Lungs: Clear to Auscultation, Normal Respiratory Effort Cardiovascular: Regular Rate, Regular Rhythm GI/Abdominal Exam: Normal Bowel Sounds, Soft, Tender (epigatric) Extremities: Normal Inspection, Normal Range of Motion Sepsis Event Note - Evaluation Sepsis Screening Result: No Definite Risk - Focused Exam Vital Signs: Vital Signs Temp Pulse Resp BP Pulse Ox 05/08/20 08:00 36.3 C 66 16 122/53 L 98 05/08/20 02:29 36.6 C 64 16 90/55 L 95 Date Exam was Performed: 05/08/20 Time Exam was Performed: 11:44 - Problem List & Annotations (1) Epigastric abdominal pain SNOMED Code(s): 43182886 Code(s): R10.13 - EPIGASTRIC PAIN Status: Acute Current Visit: Yes (2) Hypokalemia SNOMED Code(s): 87805110 Code(s): E87.6 - HYPOKALEMIA Status: Acute Current Visit: Yes (3) Nausea and vomiting SNOMED Code(s): 73656202 Code(s): R11.2 - NAUSEA WITH VOMITING, UNSPECIFIED Status: Acute Current Visit: Yes Qualifiers: Vomiting type: unspecified Vomiting Intractability: non-intractable Qualified Code(s): R11.2 - Nausea with vomiting, unspecified (4) Gastritis SNOMED Code(s): 7914134 Code(s): K29.70 - GASTRITIS, UNSPECIFIED, WITHOUT BLEEDING Status: Acute Current Visit: No (5) Prolonged QT interval SNOMED Code(s): 381638052 Code(s): R94.31 - ABNORMAL ELECTROCARDIOGRAM [ECG] [EKG] Status: Acute Current Visit: Yes - Problem List Review Problem List Initiated/Reviewed/Updated: Yes - My Orders Last 24 Hours: My Active Orders 05/07/20 21:00 Insulin Detemir [Levemir] 15 unit SUBCUT BEDTIME Patient's Own Medication [Ptom] 1 each PO BID 05/08/20 09:00 Sertraline [Zoloft] 50 mg PO DAILY 05/08/20 09:16 Ondansetron [Zofran] 4 mg IVPUSH Q6H PRN 05/08/20 09:40 Potassium Chloride 60 meq Sodium Chloride 0.9% [Normal Saline] 500 ml IV ONETIME 05/08/20 10:30 Pantoprazole [ProTONIX IV] 40 mg Sodium Chloride 0.9% [Normal Saline] 10 ml IV Q24H 05/08/20 Lunch Clear Liquid Diet [DIET] 05/08/20 11:37 Code Status [Resuscitation Status] Routine - Plan Plan:: 44 y/o F admitted for intractable N/V, severe hypokalemia, prolonged Qtc Still Nauseous, some vomiting, Qtc better, will start Zofran PRN for nausea, give morphine and Benadryl for acute relief of N/V cont IV fluids LR @ 125 cc/hr WBC count resolved, cultures negative, no fever, will dc IV antibiotics, Replete potassium by IV Advance diet as tolerated IV PPI daily, Zofran as needed ( watch for Qtc) cont SSI as needed, Levemir at bedtime Lovenox for DVT ppx
[2020-05-08] MEDS: Insulin Detemir 100 Units/ML 3 ML Pen SUBCUT SCH (21:03)
[2020-05-09] MEDS: Morphine 2 MG/ML SYRINGE IVPUSH PRN ×2 (02:04→14:23)
[2020-05-09] MEDS: Lactated Ringers 1,000 ML IV SCH ×2 (03:10→16:43)
[2020-05-09] MEDS: Ondansetron 4 MG/2 ML SDV IVPUSH PRN ×4 (03:10→22:52)
[2020-05-09 05:39] LABS: BLOOD UREA NITROGEN,BUN 5 mg/dL (7.0-18.0); CARBON DIOXIDE,CO2 25.8 mmol/L (21.0-32.0); CHLORIDE,CL 98 mmol/L (98-107); GLUCOSE RANDOM 214 mg/dL (74-106); POTASSIUM,K 3.4 mmol/L (3.5-5.1); SODIUM,NA 136 mmol/L (136-145)
[2020-05-09] MEDS ORDERED: Magnesium Sulfate/Water 2 GM in Premix Bag 1 BAG IV ONE (08:43)
[2020-05-09] MEDS: Sertraline 50 MG Tab PO SCH (08:58)
[2020-05-09] MEDS: LEVETIRACETAM 500 MG PO SCH ×2 (08:59→22:42)
[2020-05-09] MEDS: Insulin Aspart 100 Units/ML 3 ML Pen SUBCUT SCH ×3 (09:11→18:10)
[2020-05-09] MEDS ORDERED: Sodium Chloride 0.9% with KCl 1,000 ML IV SCH (10:00)
[2020-05-09] MEDS: Pantoprazole 40 MG in Sodium Chloride 0.9% 10 ML IV SCH (10:24)
--- NOTE | 2020-05-09 10:51 | PCM.PN ---
- General Info Date of Service: 05/09/20 - Review of Systems Systems Review Comment:: reports nausea this morning, denies abdominal pain - Patient Data Vitals - Most Recent: Last Vital Signs Temp 36.5 C 05/09/20 08:00 Pulse 71 05/09/20 08:00 Resp 16 05/09/20 08:00 BP 127/67 05/09/20 08:00 Pulse Ox 97 05/09/20 08:00 Weight - Most Recent: 89.675 kg I&O - Last 24 Hours: Intake & Output 05/08/20 05/09/20 05/09/20 22:59 06:59 14:59 Intake Total 1898 1416 Output Total 1600 1850 Balance 298 -434 Lab Results Last 24 Hours: Laboratory Results - last 24 hr 05/08/20 05/08/20 05/08/20 Range/Units 06:00 07:36 12:30 WBC (4.0-11.0) K/uL RBC (4.30-5.90) M/uL Hgb (12.0-16.0) g/dL Hct (36.0-46.0) % MCV (80.0-98.0) fL MCH (27.0-32.0) pg MCHC (31.0-37.0) g/dL RDW Std Deviation (28.0-62.0) fl RDW Coeff of Wil (11.0-15.0) % Plt Count (150-400) K/uL MPV (7.40-12.00) fL Neut % (Auto) (48.0-80.0) % Lymph % (Auto) (16.0-40.0) % Cross % (Auto) (0.0-15.0) % Eos % (Auto) (0.0-7.0) % Baso % (Auto) (0.0-1.5) % Neut # (Auto) (1.4-5.7) K/uL Lymph # (Auto) (0.6-2.4) K/uL Cross # (Auto) (0.0-0.8) K/uL Eos # (Auto) (0.0-0.7) K/uL Baso # (Auto) (0.0-0.1) K/uL Nucleated RBC % /100WBC Nucleated RBCs # K/uL Sodium (136-145) mmol/L Potassium (3.5-5.1) mmol/L Chloride (98-107) mmol/L Carbon Dioxide (21.0-32.0) mmol/L BUN (7.0-18.0) mg/dL Creatinine (0.6-1.0) mg/dL Est Cr Clr Drug Dosing mL/min Estimated GFR (MDRD) ml/min Glucose (74-106) mg/dL POC Glucose 117 H 162 H (60-110) mg/dL Calcium (8.5-10.1) mg/dL Phosphorus (2.6-4.7) mg/dL Magnesium (1.8-2.4) mg/dL Total Bilirubin 0.7 (0.2-1.0) mg/dL Direct Bilirubin 0.10 (0.0-0.5) mg/dL Indirect Bilirubin 0.60 AST 16 (15-37) IU/L ALT 20 (14-63) IU/L Alkaline Phosphatase 56 (46-116) U/L Total Protein 5.3 L (6.4-8.2) g/dL Albumin 2.8 L (3.4-5.0) g/dL Globulin 2.5 L (2.6-4.0) g/dL Albumin/Globulin Ratio 1.1 (0.9-1.6) 05/08/20 05/08/20 05/09/20 Range/Units 17:00 21:05 05:06 WBC 10.59 (4.0-11.0) K/uL RBC 4.45 (4.30-5.90) M/uL Hgb 12.0 (12.0-16.0) g/dL Hct 37.4 (36.0-46.0) % MCV 84.0 (80.0-98.0) fL MCH 27.0 (27.0-32.0) pg MCHC 32.1 (31.0-37.0) g/dL RDW Std Deviation 39.7 (28.0-62.0) fl RDW Coeff of Wil 13 (11.0-15.0) % Plt Count 249 (150-400) K/uL MPV 10.50 (7.40-12.00) fL Neut % (Auto) 68.8 (48.0-80.0) % Lymph % (Auto) 24.4 (16.0-40.0) % Cross % (Auto) 6.5 (0.0-15.0) % Eos % (Auto) 0.2 (0.0-7.0) % Baso % (Auto) 0.1 (0.0-1.5) % Neut # (Auto) 7.3 H (1.4-5.7) K/uL Lymph # (Auto) 2.6 H (0.6-2.4) K/uL [place] # (Auto) 0.7 (0.0-0.8) K/uL Eos # (Auto) 0.0 (0.0-0.7) K/uL Baso # (Auto) 0.0 (0.0-0.1) K/uL Nucleated RBC % 0.0 /100WBC Nucleated RBCs # 0 K/uL Sodium (136-145) mmol/L Potassium (3.5-5.1) mmol/L Chloride (98-107) mmol/L Carbon Dioxide (21.0-32.0) mmol/L BUN (7.0-18.0) mg/dL Creatinine (0.6-1.0) mg/dL Est Cr Clr Drug Dosing mL/min Estimated GFR (MDRD) ml/min Glucose (74-106) mg/dL POC Glucose 151 H 177 H (60-110) mg/dL Calcium (8.5-10.1) mg/dL Phosphorus (2.6-4.7) mg/dL Magnesium (1.8-2.4) mg/dL Total Bilirubin (0.2-1.0) mg/dL Direct Bilirubin (0.0-0.5) mg/dL Indirect Bilirubin AST (15-37) IU/L ALT (14-63) IU/L Alkaline Phosphatase (46-116) U/L Total Protein (6.4-8.2) g/dL Albumin (3.4-5.0) g/dL Globulin (2.6-4.0) g/dL Albumin/Globulin Ratio (0.9-1.6) 05/09/20 05/09/20 05/09/20 Range/Units 05:06 06:19 09:11 WBC (4.0-11.0) K/uL RBC (4.30-5.90) M/uL Hgb (12.0-16.0) g/dL Hct (36.0-46.0) % MCV (80.0-98.0) fL MCH (27.0-32.0) pg MCHC (31.0-37.0) g/dL RDW Std Deviation (28.0-62.0) fl RDW Coeff of Wil (11.0-15.0) % Plt Count (150-400) K/uL MPV (7.40-12.00) fL Neut % (Auto) (48.0-80.0) % Lymph % (Auto) (16.0-40.0) % Cross % (Auto) (0.0-15.0) % Eos % (Auto) (0.0-7.0) % Baso % (Auto) (0.0-1.5) % Neut # (Auto) (1.4-5.7) K/uL Lymph # (Auto) (0.6-2.4) K/uL Cross # (Auto) (0.0-0.8) K/uL Eos # (Auto) (0.0-0.7) K/uL Baso # (Auto) (0.0-0.1) K/uL Nucleated RBC % /100WBC Nucleated RBCs # K/uL Sodium 136 (136-145) mmol/L Potassium 3.4 L (3.5-5.1) mmol/L Chloride 98 (98-107) mmol/L Carbon Dioxide 25.8 (21.0-32.0) mmol/L BUN 5 L (7.0-18.0) mg/dL Creatinine 0.7 (0.6-1.0) mg/dL Est Cr Clr Drug Dosing 98.69 mL/min Estimated GFR (MDRD) > 60.0 ml/min Glucose 214 H (74-106) mg/dL POC Glucose 212 H 233 H (60-110) mg/dL Calcium 8.5 (8.5-10.1) mg/dL Phosphorus 2.3 L (2.6-4.7) mg/dL Magnesium 1.6 L (1.8-2.4) mg/dL Total Bilirubin (0.2-1.0) mg/dL Direct Bilirubin (0.0-0.5) mg/dL Indirect Bilirubin AST (15-37) IU/L ALT (14-63) IU/L Alkaline Phosphatase (46-116) U/L Total Protein (6.4-8.2) g/dL Albumin (3.4-5.0) g/dL Globulin (2.6-4.0) g/dL Albumin/Globulin Ratio (0.9-1.6) Jordy Results Last 24 Hours: Microbiology 05/07/20 03:20 Aerobic Blood Culture - Preliminary Blood - Venous - Lab Draw NO GROWTH AFTER 2 DAYS Anaerobic Blood Culture - Final 05/07/20 03:10 Aerobic Blood Culture - Preliminary Blood - Venous NO GROWTH AFTER 2 DAYS Anaerobic Blood Culture - Final Med Orders - Current: Current Medications Acetaminophen (Tylenol Extra Strength) 500 mg PO Q4H PRN PRN Reason: fever/pain Last Admin: 05/08/20 12:36 Dose: 500 mg Documented by: Lactated Ringer's (Ringers, Lactated) 1,000 mls @ 125 mls/hr IV ASDIRECTED [facility] Last Admin: 05/09/20 03:10 Dose: 125 mls/hr Documented by: Pantoprazole Sodium 40 mg/ (Sodium Chloride) 10 mls @ 300 mls/hr IV Q24H [facility] Last Admin: 05/09/20 10:24 Dose: 300 mls/hr Documented by: Potassium Chloride/Sodium Chloride (Normal Saline With 40 Meq Kcl) 1,000 mls @ 150 mls/hr IV ASDIRECTED [facility] Stop: 05/09/20 16:39 Last Admin: 05/09/20 10:30 Dose: 150 mls/hr Documented by: Insulin Aspart (Novolog) 0 unit SUBCUT TIDAC [facility]; Protocol Last Admin: 05/09/20 09:11 Dose: 4 units Documented by: Insulin Detemir (Levemir) 15 unit SUBCUT BEDTIME [facility] Last Admin: 05/08/20 21:03 Dose: 10 units Documented by: Morphine Sulfate (Morphine) 1 mg IVPUSH Q4H PRN PRN Reason: Pain Last Admin: 05/09/20 02:04 Dose: 1 mg Documented by: Ondansetron HCl (Zofran) 4 mg IVPUSH Q6H PRN PRN Reason: Nausea/Vomiting Last Admin: 05/09/20 08:59 Dose: 4 mg Documented by: Levetiracetam [ (Keppra] 500 Mg) 1 each PO BID [facility] Last Admin: 05/09/20 08:59 Dose: 1 each Documented by: Sertraline HCl (Zoloft) 50 mg PO DAILY [facility] Last Admin: 05/09/20 08:58 Dose: 50 mg Documented by: Sodium Chloride (Saline Flush) 10 ml FLUSH ASDIRECTED PRN PRN Reason: Keep Vein Open Sodium Chloride (Saline Flush) 2.5 ml FLUSH ASDIRECTED PRN PRN Reason: Keep Vein Open Discontinued Medications Acetaminophen (Tylenol Extra Strength) 1,000 mg PO ONETIME ONE Stop: 05/07/20 02:33 Last Admin: 05/07/20 03:47 Dose: Not Given Documented by: Diphenhydramine HCl (Benadryl) 25 mg IVPUSH ONETIME ONE Stop: 05/08/20 10:22 Last Admin: 05/08/20 10:36 Dose: 25 mg Documented by: Fentanyl (Fentanyl) Confirm Administered Dose 50 mcg .ROUTE .STK-MED ONE Stop: 05/07/20 02:19 Last Admin: 05/07/20 02:57 Dose: 50 mcg Documented by: Fentanyl (Fentanyl) 50 mcg IVPUSH ONETIME ONE Stop: 05/07/20 02:19 Last Admin: 05/07/20 03:04 Dose: Not Given Documented by: Lactated Ringer's (Ringers, Lactated) 1,000 mls @ 999 mls/hr IV .BOLUS ONE Stop: 05/07/20 02:11 Last Admin: 05/07/20 01:15 Dose: 999 mls/hr Documented by: Magnesium Sulfate 2 gm/ Premix 50 mls @ 50 mls/hr IV ONETIME ONE Stop: 05/07/20 02:55 Last Admin: 05/07/20 02:08 Dose: 50 mls/hr Documented by: Potassium Chloride 20 meq/ (Premix) 50 mls @ 25 mls/hr IV ONETIME ONE Stop: 05/07/20 03:56 Last Infusion: 05/07/20 03:48 Dose: 20 mls/hr Documented by: Vancomycin HCl 1.5 gm/ (Dextrose/Water) 250 mls @ 167 mls/hr IV ONETIME ONE Stop: 05/07/20 04:49 Last Admin: 05/07/20 06:48 Dose: Not Given Documented by: Meropenem 2 gm/ Sodium (Chloride) 100 mls @ 100 mls/hr IV ONETIME ONE Stop: 05/07/20 04:22 Last Admin: 05/07/20 03:50 Dose: 100 mls/hr Documented by: Vancomycin HCl 1.5 gm/ (Dextrose/Water) 500 mls @ 334.014 mls/hr IV ONETIME ONE Stop: 05/07/20 04:49 Last Admin: 05/07/20 04:04 Dose: 334.014 mls/hr Documented by: Pantoprazole Sodium 40 mg/ (Sodium Chloride) 10 mls @ 300 mls/hr IV Q24H [facility] Last Admin: 05/07/20 05:48 Dose: 300 mls/hr Documented by: Vancomycin HCl 1 gm/ Sodium (Chloride) 250 mls @ 166 mls/hr IV Q12H [facility] Meropenem/Sodium Chloride 1 gm (/ Premix) 50 mls @ 100 mls/hr IV Q12H [facility] Last Admin: 05/08/20 03:57 Dose: 100 mls/hr Documented by: Vancomycin HCl 1.25 gm/ Sodium (Chloride) 250 mls @ 167 mls/hr IV Q12H [facility] Last Admin: 05/08/20 02:26 Dose: 167 mls/hr Documented by: Potassium Chloride 40 meq/ (Premix) 100 mls @ 25 mls/hr IV ONETIME ONE Stop: 05/07/20 14:53 Last Admin: 05/07/20 11:47 Dose: 25 mls/hr Documented by: Lactated Ringer's (Ringers, Lactated) 1,000 mls @ 999 mls/hr IV .BOLUS ONE Stop: 05/07/20 12:04 Last Admin: 05/07/20 11:59 Dose: 999 mls/hr Documented by: Magnesium Sulfate 2 gm/ Premix 50 mls @ 50 mls/hr IV ONETIME ONE Stop: 05/07/20 12:04 Last Admin: 05/07/20 12:00 Dose: 50 mls/hr Documented by: Pantoprazole Sodium 40 mg/ (Sodium Chloride) 10 mls @ 300 mls/hr IV ONETIME ONE Stop: 05/07/20 11:40 Last Admin: 05/07/20 12:00 Dose: 300 mls/hr Documented by: Lactated Ringer's (Ringers, Lactated) 1,000 mls @ 999 mls/hr IV .BOLUS ONE Stop: 05/08/20 00:49 Last Admin: 05/08/20 00:00 Dose: 999 mls/hr Documented by: Magnesium Sulfate 2 gm/ Premix 50 mls @ 50 mls/hr IV ONETIME ONE Stop: 05/08/20 10:29 Last Admin: 05/08/20 09:55 Dose: 50 mls/hr Documented by: Potassium Chloride 60 meq/ (Sodium Chloride) 530 mls @ 88.333 mls/hr IV ONETIME ONE Stop: 05/08/20 15:39 Last Admin: 05/08/20 09:55 Dose: 88.333 mls/hr Documented by: Magnesium Sulfate 2 gm/ Premix 50 mls @ 50 mls/hr IV ONETIME ONE Stop: 05/09/20 09:42 Last Admin: 05/09/20 09:02 Dose: 50 mls/hr Documented by: Ibuprofen (Motrin) 400 mg PO ONETIME ONE Stop: 05/07/20 02:33 Last Admin: 05/07/20 03:16 Dose: Not Given Documented by: Iopamidol (Isovue-370 (76%)) 100 ml IVPUSH ONETIME ONE Stop: 05/07/20 02:33 Last Admin: 05/07/20 02:32 Dose: 100 ml Documented by: Metoclopramide HCl (Reglan) 10 mg IVPUSH ONETIME ONE Stop: 05/07/20 01:59 Last Admin: 05/07/20 02:07 Dose: 10 mg Documented by: Ondansetron HCl (Zofran) 4 mg IVPUSH ONETIME ONE Stop: 05/07/20 01:00 Last Admin: 05/07/20 01:09 Dose: 4 mg Documented by: Ondansetron HCl (Zofran) Confirm Administered Dose 4 mg .ROUTE .STK-MED ONE Stop: 05/07/20 01:01 Last Admin: 05/07/20 01:15 Dose: Not Given Documented by: Ondansetron HCl (Zofran) 4 mg IVPUSH ONETIME ONE Stop: 05/07/20 09:55 Last Admin: 05/07/20 11:45 Dose: 4 mg Documented by: Potassium Chloride (Potassium Chloride) 60 meq PO ONETIME ONE Stop: 05/07/20 03:01 Last Admin: 05/07/20 03:06 Dose: 60 meq Documented by: - Exam General: Alert, Oriented Neck: Supple Lungs: Clear to Auscultation, Normal Respiratory Effort Cardiovascular: Regular Rate, Regular Rhythm GI/Abdominal Exam: Normal Bowel Sounds, Soft, Non-Tender, No Distention Extremities: Normal Inspection, Non-Tender, No Pedal Edema Skin: Warm, Dry, Intact Neurological: No New Focal Deficit Sepsis Event Note - Evaluation Sepsis Screening Result: No Definite Risk - Focused Exam Vital Signs: Vital Signs Temp Temp Pulse Resp BP Pulse Ox 05/09/20 08:00 36.5 C 71 16 127/67 97 05/09/20 03:14 37.1 C 68 16 129/63 98 05/08/20 23:34 37.1 C 64 16 131/60 96 Date Exam was Performed: 05/09/20 Time Exam was Performed: 10:49 - Problem List Review Problem List Initiated/Reviewed/Updated: Yes - My Orders Last 24 Hours: My Active Orders 05/09/20 10:00 Sodium Chloride 0.9% with KCl [Normal Saline with 40 mEq KCl] 1,000 ml IV ASDIRECTED 05/10/20 05:11 BASIC METABOLIC PANEL,BMP [CHEM] AM CBC WITH AUTO DIFF [HEME] AM MAGNESIUM [CHEM] AM - Plan Plan:: 44 yo female admitted for hypokalemia, hypomagnesia due to N/V and gastritis. We will continue to replace electrolytes and treat supportively.
--- NOTE | 2020-05-09 13:36 | CT ---
EXAM DATE: 05/09/20 PATIENT'S AGE: 44 INDICATION: Epigastric pain radiating to back TECHNIQUE: CT Abdomen and pelvis with i.v. contrast. Coronal and sagittal reformats were obtained. CONTRAST: 100 mL Isovue 370 COMPARISON: None FINDINGS: Liver: Unremarkable. Spleen: Unremarkable. Pancreas: Unremarkable. Gallbladder: Unremarkable. Kidney: Unremarkable. No kidney or ureteral stones or obstruction seen. Adrenal: Unremarkable. Bowel: Small sliding type esophageal hiatal hernia (type I) is present. The appendix is normal in appearance and size. Vascular: Unremarkable. Lymph: Unremarkable. Peritoneum: Unremarkable. No pneumoperitoneum is seen. No significant ascites is noted. Pelvis: The patient is status post prior hysterectomy. Soft tissue: Unremarkable. Bone: Unremarkable for age. IMPRESSION: 1. Unremarkable with no CT correlate for the patient`s symptoms seen. Dictated by Fede Gutierrez MD @ 05/07/2020 3:20:09 AM Please note that all CT scans at this facility use dose modulation, iterative reconstruction, and/or weight-based dosing when appropriate to reduce radiation dose to as low as reasonably achievable. Dictated by: Fede Gutierrez MD @ 05/07/2020 03:20:23 (Electronically Signed) Report Signed by Proxy. [facility]
[2020-05-09] MEDS: Insulin Detemir 100 Units/ML 3 ML Pen SUBCUT SCH (22:42)
[2020-05-10 07:06] LABS: BLOOD UREA NITROGEN,BUN 5 mg/dL (7.0-18.0); CARBON DIOXIDE,CO2 25.8 mmol/L (21.0-32.0); CHLORIDE,CL 98 mmol/L (98-107); GLUCOSE RANDOM 170 mg/dL (74-106); POTASSIUM,K 3.5 mmol/L (3.5-5.1); SODIUM,NA 135 mmol/L (136-145)
[2020-05-10] MEDS: Sertraline 50 MG Tab PO SCH (08:26)
[2020-05-10] MEDS: LEVETIRACETAM 500 MG PO SCH ×2 (08:27→21:17)
[2020-05-10] MEDS: Insulin Aspart 100 Units/ML 3 ML Pen SUBCUT SCH ×3 (08:28→17:24)
[2020-05-10] MEDS: Ondansetron 4 MG/2 ML SDV IVPUSH PRN (08:29)
[2020-05-10] MEDS: Lactated Ringers 1,000 ML IV SCH ×2 (09:55→18:43)
[2020-05-10] MEDS: Pantoprazole 40 MG in Sodium Chloride 0.9% 10 ML IV SCH (10:36)
[2020-05-10] MEDS: Promethazine 25 MG/ML SDV IM PRN ×2 (10:43→18:48)
[2020-05-10] MEDS ORDERED: Magnesium Sulfate/Water 2 GM in Premix Bag 1 BAG IV ONE (10:59)
--- NOTE | 2020-05-10 11:00 | PCM.PN ---
- General Info Date of Service: 05/10/20 - Review of Systems Systems Review Comment:: threw up last night, had nausea this morning when trying to drink fluids - Patient Data Vitals - Most Recent: Last Vital Signs Temp 36.8 C 05/10/20 08:00 Pulse 68 05/10/20 08:00 Resp 18 05/10/20 08:00 BP 130/70 05/10/20 08:00 Pulse Ox 98 05/10/20 08:00 Weight - Most Recent: 89.675 kg I&O - Last 24 Hours: Intake & Output 05/09/20 05/10/20 05/10/20 22:59 06:59 14:59 Intake Total 1628 300 Output Total 3100 3045 Balance -1472 -2325 Lab Results Last 24 Hours: Laboratory Results - last 24 hr 05/09/20 05/09/20 05/10/20 Range/Units 12:23 18:09 06:18 WBC (4.0-11.0) K/uL RBC (4.30-5.90) M/uL Hgb (12.0-16.0) g/dL Hct (36.0-46.0) % MCV (80.0-98.0) fL MCH (27.0-32.0) pg MCHC (31.0-37.0) g/dL RDW Std Deviation (28.0-62.0) fl RDW Coeff of Wil (11.0-15.0) % Plt Count (150-400) K/uL MPV (7.40-12.00) fL Neut % (Auto) (48.0-80.0) % Lymph % (Auto) (16.0-40.0) % [place] % (Auto) (0.0-15.0) % Eos % (Auto) (0.0-7.0) % Baso % (Auto) (0.0-1.5) % Neut # (Auto) (1.4-5.7) K/uL Lymph # (Auto) (0.6-2.4) K/uL [place] # (Auto) (0.0-0.8) K/uL Eos # (Auto) (0.0-0.7) K/uL Baso # (Auto) (0.0-0.1) K/uL Nucleated RBC % /100WBC Nucleated RBCs # K/uL Sodium (136-145) mmol/L Potassium (3.5-5.1) mmol/L Chloride (98-107) mmol/L Carbon Dioxide (21.0-32.0) mmol/L BUN (7.0-18.0) mg/dL Creatinine (0.6-1.0) mg/dL Est Cr Clr Drug Dosing mL/min Estimated GFR (MDRD) ml/min Glucose (74-106) mg/dL POC Glucose 201 H 183 H 155 H (60-110) mg/dL Calcium (8.5-10.1) mg/dL Magnesium (1.8-2.4) mg/dL 05/10/20 05/10/20 Range/Units 06:20 06:20 WBC 13.35 H (4.0-11.0) K/uL RBC 4.69 (4.30-5.90) M/uL Hgb 12.6 (12.0-16.0) g/dL Hct 39.0 (36.0-46.0) % MCV 83.2 (80.0-98.0) fL MCH 26.9 L (27.0-32.0) pg MCHC 32.3 (31.0-37.0) g/dL RDW Std Deviation 39.8 (28.0-62.0) fl RDW Coeff of Wil 13 (11.0-15.0) % Plt Count 283 (150-400) K/uL MPV 10.50 (7.40-12.00) fL Neut % (Auto) 74.8 (48.0-80.0) % Lymph % (Auto) 18.7 (16.0-40.0) % [place] % (Auto) 6.4 (0.0-15.0) % Eos % (Auto) 0.0 (0.0-7.0) % Baso % (Auto) 0.1 (0.0-1.5) % Neut # (Auto) 10.0 H (1.4-5.7) K/uL Lymph # (Auto) 2.5 H (0.6-2.4) K/uL [place] # (Auto) 0.9 H (0.0-0.8) K/uL Eos # (Auto) 0.0 (0.0-0.7) K/uL Baso # (Auto) 0.0 (0.0-0.1) K/uL Nucleated RBC % 0.0 /100WBC Nucleated RBCs # 0 K/uL Sodium 135 L (136-145) mmol/L Potassium 3.5 (3.5-5.1) mmol/L Chloride 98 (98-107) mmol/L Carbon Dioxide 25.8 (21.0-32.0) mmol/L BUN 5 L (7.0-18.0) mg/dL Creatinine 0.7 (0.6-1.0) mg/dL Est Cr Clr Drug Dosing 98.69 mL/min Estimated GFR (MDRD) > 60.0 ml/min Glucose 170 H (74-106) mg/dL POC Glucose (60-110) mg/dL Calcium 8.4 L (8.5-10.1) mg/dL Magnesium 1.6 L (1.8-2.4) mg/dL Jordy Results Last 24 Hours: Microbiology 05/07/20 03:20 Aerobic Blood Culture - Preliminary Blood - Venous - Lab Draw NO GROWTH AFTER 3 DAYS Anaerobic Blood Culture - Final 05/07/20 03:10 Aerobic Blood Culture - Preliminary Blood - Venous NO GROWTH AFTER 3 DAYS Anaerobic Blood Culture - Final Med Orders - Current: Current Medications Acetaminophen (Tylenol Extra Strength) 500 mg PO Q4H PRN PRN Reason: fever/pain Last Admin: 05/08/20 12:36 Dose: 500 mg Documented by: Lactated Ringer's (Ringers, Lactated) 1,000 mls @ 125 mls/hr IV ASDIRECTED [facility] Last Admin: 05/10/20 09:55 Dose: 125 mls/hr Documented by: Pantoprazole Sodium 40 mg/ (Sodium Chloride) 10 mls @ 300 mls/hr IV Q24H [facility] Last Admin: 05/10/20 10:36 Dose: 300 mls/hr Documented by: Insulin Aspart (Novolog) 0 unit SUBCUT TIDAC [facility]; Protocol Last Admin: 05/10/20 08:28 Dose: 2 units Documented by: Insulin Detemir (Levemir) 15 unit SUBCUT BEDTIME [facility] Last Admin: 05/09/20 22:42 Dose: 15 units Documented by: Morphine Sulfate (Morphine) 1 mg IVPUSH Q4H PRN PRN Reason: Pain Last Admin: 05/09/20 14:23 Dose: 1 mg Documented by: Ondansetron HCl (Zofran) 4 mg IVPUSH Q6H PRN PRN Reason: Nausea/Vomiting Last Admin: 05/10/20 08:29 Dose: 4 mg Documented by: Levetiracetam [ (Keppra] 500 Mg) 1 each PO BID [facility] Last Admin: 05/10/20 08:27 Dose: 1 each Documented by: Promethazine HCl (Phenergan) 25 mg IM Q6H PRN PRN Reason: Nausea Last Admin: 05/10/20 10:43 Dose: 25 mg Documented by: Sertraline HCl (Zoloft) 50 mg PO DAILY [facility] Last Admin: 05/10/20 08:26 Dose: 50 mg Documented by: Sodium Chloride (Saline Flush) 10 ml FLUSH ASDIRECTED PRN PRN Reason: Keep Vein Open Sodium Chloride (Saline Flush) 2.5 ml FLUSH ASDIRECTED PRN PRN Reason: Keep Vein Open Discontinued Medications Acetaminophen (Tylenol Extra Strength) 1,000 mg PO ONETIME ONE Stop: 05/07/20 02:33 Last Admin: 05/07/20 03:47 Dose: Not Given Documented by: Diphenhydramine HCl (Benadryl) 25 mg IVPUSH ONETIME ONE Stop: 05/08/20 10:22 Last Admin: 05/08/20 10:36 Dose: 25 mg Documented by: Fentanyl (Fentanyl) Confirm Administered Dose 50 mcg .ROUTE .STK-MED ONE Stop: 05/07/20 02:19 Last Admin: 05/07/20 02:57 Dose: 50 mcg Documented by: Fentanyl (Fentanyl) 50 mcg IVPUSH ONETIME ONE Stop: 05/07/20 02:19 Last Admin: 05/07/20 03:04 Dose: Not Given Documented by: Lactated Ringer's (Ringers, Lactated) 1,000 mls @ 999 mls/hr IV .BOLUS ONE Stop: 05/07/20 02:11 Last Admin: 05/07/20 01:15 Dose: 999 mls/hr Documented by: Magnesium Sulfate 2 gm/ Premix 50 mls @ 50 mls/hr IV ONETIME ONE Stop: 05/07/20 02:55 Last Admin: 05/07/20 02:08 Dose: 50 mls/hr Documented by: Potassium Chloride 20 meq/ (Premix) 50 mls @ 25 mls/hr IV ONETIME ONE Stop: 05/07/20 03:56 Last Infusion: 05/07/20 03:48 Dose: 20 mls/hr Documented by: Vancomycin HCl 1.5 gm/ (Dextrose/Water) 250 mls @ 167 mls/hr IV ONETIME ONE Stop: 05/07/20 04:49 Last Admin: 05/07/20 06:48 Dose: Not Given Documented by: Meropenem 2 gm/ Sodium (Chloride) 100 mls @ 100 mls/hr IV ONETIME ONE Stop: 05/07/20 04:22 Last Admin: 05/07/20 03:50 Dose: 100 mls/hr Documented by: Vancomycin HCl 1.5 gm/ (Dextrose/Water) 500 mls @ 334.014 mls/hr IV ONETIME ONE Stop: 05/07/20 04:49 Last Admin: 05/07/20 04:04 Dose: 334.014 mls/hr Documented by: Pantoprazole Sodium 40 mg/ (Sodium Chloride) 10 mls @ 300 mls/hr IV Q24H [facility] Last Admin: 05/07/20 05:48 Dose: 300 mls/hr Documented by: Vancomycin HCl 1 gm/ Sodium (Chloride) 250 mls @ 166 mls/hr IV Q12H [facility] Meropenem/Sodium Chloride 1 gm (/ Premix) 50 mls @ 100 mls/hr IV Q12H [facility] Last Admin: 05/08/20 03:57 Dose: 100 mls/hr Documented by: Vancomycin HCl 1.25 gm/ Sodium (Chloride) 250 mls @ 167 mls/hr IV Q12H [facility] Last Admin: 05/08/20 02:26 Dose: 167 mls/hr Documented by: Potassium Chloride 40 meq/ (Premix) 100 mls @ 25 mls/hr IV ONETIME ONE Stop: 05/07/20 14:53 Last Admin: 05/07/20 11:47 Dose: 25 mls/hr Documented by: Lactated Ringer's (Ringers, Lactated) 1,000 mls @ 999 mls/hr IV .BOLUS ONE Stop: 05/07/20 12:04 Last Admin: 05/07/20 11:59 Dose: 999 mls/hr Documented by: Magnesium Sulfate 2 gm/ Premix 50 mls @ 50 mls/hr IV ONETIME ONE Stop: 05/07/20 12:04 Last Admin: 05/07/20 12:00 Dose: 50 mls/hr Documented by: Pantoprazole Sodium 40 mg/ (Sodium Chloride) 10 mls @ 300 mls/hr IV ONETIME ONE Stop: 05/07/20 11:40 Last Admin: 05/07/20 12:00 Dose: 300 mls/hr Documented by: Lactated Ringer's (Ringers, Lactated) 1,000 mls @ 999 mls/hr IV .BOLUS ONE Stop: 05/08/20 00:49 Last Admin: 05/08/20 00:00 Dose: 999 mls/hr Documented by: Magnesium Sulfate 2 gm/ Premix 50 mls @ 50 mls/hr IV ONETIME ONE Stop: 05/08/20 10:29 Last Admin: 05/08/20 09:55 Dose: 50 mls/hr Documented by: Potassium Chloride 60 meq/ (Sodium Chloride) 530 mls @ 88.333 mls/hr IV ONETIME ONE Stop: 05/08/20 15:39 Last Admin: 05/08/20 09:55 Dose: 88.333 mls/hr Documented by: Magnesium Sulfate 2 gm/ Premix 50 mls @ 50 mls/hr IV ONETIME ONE Stop: 05/09/20 09:42 Last Admin: 05/09/20 09:02 Dose: 50 mls/hr Documented by: Potassium Chloride/Sodium Chloride (Normal Saline With 40 Meq Kcl) 1,000 mls @ 150 mls/hr IV ASDIRECTED [facility] Stop: 05/09/20 16:39 Last Admin: 05/09/20 10:30 Dose: 150 mls/hr Documented by: Ibuprofen (Motrin) 400 mg PO ONETIME ONE Stop: 05/07/20 02:33 Last Admin: 05/07/20 03:16 Dose: Not Given Documented by: Iopamidol (Isovue-370 (76%)) 100 ml IVPUSH ONETIME ONE Stop: 05/07/20 02:33 Last Admin: 05/07/20 02:32 Dose: 100 ml Documented by: Metoclopramide HCl (Reglan) 10 mg IVPUSH ONETIME ONE Stop: 05/07/20 01:59 Last Admin: 05/07/20 02:07 Dose: 10 mg Documented by: Ondansetron HCl (Zofran) 4 mg IVPUSH ONETIME ONE Stop: 05/07/20 01:00 Last Admin: 05/07/20 01:09 Dose: 4 mg Documented by: Ondansetron HCl (Zofran) Confirm Administered Dose 4 mg .ROUTE .STK-MED ONE Stop: 05/07/20 01:01 Last Admin: 05/07/20 01:15 Dose: Not Given Documented by: Ondansetron HCl (Zofran) 4 mg IVPUSH ONETIME ONE Stop: 05/07/20 09:55 Last Admin: 05/07/20 11:45 Dose: 4 mg Documented by: Potassium Chloride (Potassium Chloride) 60 meq PO ONETIME ONE Stop: 05/07/20 03:01 Last Admin: 05/07/20 03:06 Dose: 60 meq Documented by: - Exam General: Alert, Oriented Lungs: Clear to Auscultation, Normal Respiratory Effort Cardiovascular: Regular Rate, Regular Rhythm GI/Abdominal Exam: Normal Bowel Sounds, Soft, Non-Tender, No Distention Extremities: Non-Tender, No Pedal Edema Skin: Warm, Dry, Intact Neurological: No New Focal Deficit Sepsis Event Note - Evaluation Sepsis Screening Result: No Definite Risk - Focused Exam Vital Signs: Vital Signs Temp Pulse Resp BP Pulse Ox 05/10/20 08:00 36.8 C 68 18 130/70 98 05/10/20 04:26 35.9 C L 66 16 133/64 96 Date Exam was Performed: 05/10/20 Time Exam was Performed: 10:58 - Problem List Review Problem List Initiated/Reviewed/Updated: Yes - My Orders Last 24 Hours: My Active Orders 05/09/20 10:51 Admission Status [Patient Status] [ADT] Routine 05/10/20 10:02 Promethazine [Phenergan] 25 mg IM Q6H PRN 05/11/20 05:11 BASIC METABOLIC PANEL,BMP [CHEM] AM CBC WITH AUTO DIFF [HEME] AM MAGNESIUM [CHEM] AM PHOSPHORUS [CHEM] AM - Plan Plan:: 44 yo female admitted for hypokalemia, hypomagnesia due to N/V and gastritis. Gastritis: continue prn antiemetics hypomagnesia: replacing
[2020-05-10] MEDS: Insulin Detemir 100 Units/ML 3 ML Pen SUBCUT SCH (21:17)
[2020-05-11] MEDS: Lactated Ringers 1,000 ML IV SCH ×2 (02:52→10:14)
[2020-05-11] MEDS: Promethazine 25 MG/ML SDV IM PRN ×2 (03:04→10:06)
[2020-05-11 07:12] LABS: BLOOD UREA NITROGEN,BUN 5 mg/dL (7.0-18.0); CHLORIDE,CL 99 mmol/L (98-107); GLUCOSE RANDOM 147 mg/dL (74-106); POTASSIUM,K 3.3 mmol/L (3.5-5.1); SODIUM,NA 137 mmol/L (136-145)
[2020-05-11] MEDS: Insulin Aspart 100 Units/ML 3 ML Pen SUBCUT SCH ×2 (08:00→11:29)
[2020-05-11] MEDS: Sertraline 50 MG Tab PO SCH (09:35)
[2020-05-11] MEDS: LEVETIRACETAM 500 MG PO SCH (09:35)
[2020-05-11] MEDS: Pantoprazole 40 MG in Sodium Chloride 0.9% 10 ML IV SCH (10:10)
[2020-05-11 11:49] VITALS: BP 133/62; PULSE 64
--- NOTE | 2020-05-11 14:09 | PCM.DCSUM1 ---
Discharge Summary - Discharge Data Discharge Date: 05/11/20 Discharge Disposition: Home, Self-Care 01 Condition: Good - Referral to Home Health Primary Care Physician: Jaxon Newell Service - Patient Summary/Data Hospital Course: 44-year-old female past medical history of type 2 diabetes mellitus, hypertension, depression, seizure, GERD who was admitted for intractable nausea and vomiting. She presented with chest discomfort, nausea, several episodes of vomiting. Lactate elevated at 3.6. Severe hypokalemia to 2.1. Urinalysis shows ketones but no evidence of blood or infection. Twelve-lead EKG obtained showing severe QT interval prolongation. Patient was given IV magnesium sulfate followed by IV and PO potassium chloride. She received IV fentanyl and antibiotic medications due to concern of possible severe sepsis, cultures were obtained however no source of infection was found on imaging. CT angiographic imaging of the chest, abdomen, and pelvis and ultrasound study of the abdomen were unremarkable. Patient was admitted to the hospital given her intractable N/V. , severe hypokalemia with ECG changes. She was treated with zofran and phenergan. Phenergan appear to better control her nausea than zofran. Her electrolytes were replaced. She did have improvement in her symptoms and today she is requesting discharge. She was discharged home to have follow up with [facility] [place]. - Patient Instructions Diet: Usual Diet as Tolerated - Discharge Plan Prescriptions/Med Rec: Promethazine [Phenergan] 25 mg PO Q8H PRN #10 tab PRN Reason: Nausea Home Medications: Home Meds Insulin Detemir [Levemir] 10 units SUBCUT BEDTIME 05/07/20 [History] Insulin Detemir [Levemir] 25 units SUBCUT DAILY 05/07/20 [History] Insulin Lispro [HumaLOG] 0 unit SUBCUT TIDMEALS 05/07/20 [History] Non-Formulary Medication [NF Drug] 1 mg SUBCUT WEEKLY 05/07/20 [History] Sertraline [Zoloft] 50 mg PO DAILY 05/07/20 [History] SitaGLIPtin [Januvia] 50 mg PO DAILY 05/07/20 [History] levETIRAcetam [Keppra XR] 500 mg PO BID 05/07/20 [History] metFORMIN [Glucophage XR] 1,000 mg PO WITHDINNER 05/07/20 [History] metOLazone [Metolazone] 2.5 mg PO DAILY 05/07/20 [History] Cyanocobalamin (Vitamin B-12) [Cyanocobalamin Injection] 1,000 mcg SUBCUT Q30D 05/09/20 [History] Potassium Chloride [Klor-Con 8] 8 meq PO BID 05/09/20 [History] Promethazine [Phenergan] 25 mg PO Q8H PRN #10 tab 05/11/20 [Rx] Patient Handouts: Hypokalemia, Promethazine tablets, Gastroparesis Referrals: Danita Nguyen MD [Physician] - 05/19/20 10:30 am Newell Jaxon Delacruz [Primary Care Provider] - - Discharge Summary/Plan Comment DC Time >30 min.: No - Patient Data Vitals - Most Recent: Last Vital Signs Temp 37.3 C 05/11/20 11:47 Pulse 64 05/11/20 11:47 Resp 14 05/11/20 11:47 BP 133/62 05/11/20 11:47 Pulse Ox 96 05/11/20 11:47 Weight - Most Recent: 89.675 kg I&O - Last 24 hours: Intake & Output 05/10/20 05/11/20 05/11/20 22:59 06:59 14:59 Intake Total 2758 420 1010 Output Total 2000 2200 Balance 758 -1780 1010 Lab Results - Last 24 hrs: Laboratory Results - last 24 hr 05/10/20 05/11/20 05/11/20 Range/Units 16:13 06:19 06:19 WBC 12.73 H (4.0-11.0) K/uL RBC 4.76 (4.30-5.90) M/uL Hgb 12.8 (12.0-16.0) g/dL Hct 39.4 (36.0-46.0) % MCV 82.8 (80.0-98.0) fL MCH 26.9 L (27.0-32.0) pg MCHC 32.5 (31.0-37.0) g/dL RDW Std Deviation 38.9 (28.0-62.0) fl RDW Coeff of Wil 13 (11.0-15.0) % Plt Count 286 (150-400) K/uL MPV 10.50 (7.40-12.00) fL Neut % (Auto) 74.3 (48.0-80.0) % Lymph % (Auto) 18.2 (16.0-40.0) % [place] % (Auto) 7.1 (0.0-15.0) % Eos % (Auto) 0.3 (0.0-7.0) % Baso % (Auto) 0.1 (0.0-1.5) % Neut # (Auto) 9.5 H (1.4-5.7) K/uL Lymph # (Auto) 2.3 (0.6-2.4) K/uL [place] # (Auto) 0.9 H (0.0-0.8) K/uL Eos # (Auto) 0.0 (0.0-0.7) K/uL Baso # (Auto) 0.0 (0.0-0.1) K/uL Nucleated RBC % 0.0 /100WBC Nucleated RBCs # 0 K/uL Sodium 137 (136-145) mmol/L Potassium 3.3 L (3.5-5.1) mmol/L Chloride 99 (98-107) mmol/L Carbon Dioxide 26.0 (21.0-32.0) mmol/L BUN 5 L (7.0-18.0) mg/dL Creatinine 0.6 (0.6-1.0) mg/dL Est Cr Clr Drug Dosing 115.14 mL/min Estimated GFR (MDRD) > 60.0 ml/min Glucose 147 H (74-106) mg/dL POC Glucose 134 H (60-110) mg/dL Calcium 8.8 (8.5-10.1) mg/dL Phosphorus 2.5 L (2.6-4.7) mg/dL Magnesium 1.6 L (1.8-2.4) mg/dL 05/11/20 05/11/20 Range/Units 08:33 11:27 WBC (4.0-11.0) K/uL RBC (4.30-5.90) M/uL Hgb (12.0-16.0) g/dL Hct (36.0-46.0) % MCV (80.0-98.0) fL MCH (27.0-32.0) pg MCHC (31.0-37.0) g/dL RDW Std Deviation (28.0-62.0) fl RDW Coeff of Wil (11.0-15.0) % Plt Count (150-400) K/uL MPV (7.40-12.00) fL Neut % (Auto) (48.0-80.0) % Lymph % (Auto) (16.0-40.0) % [place] % (Auto) (0.0-15.0) % Eos % (Auto) (0.0-7.0) % Baso % (Auto) (0.0-1.5) % Neut # (Auto) (1.4-5.7) K/uL Lymph # (Auto) (0.6-2.4) K/uL [place] # (Auto) (0.0-0.8) K/uL Eos # (Auto) (0.0-0.7) K/uL Baso # (Auto) (0.0-0.1) K/uL Nucleated RBC % /100WBC Nucleated RBCs # K/uL Sodium (136-145) mmol/L Potassium (3.5-5.1) mmol/L Chloride (98-107) mmol/L Carbon Dioxide (21.0-32.0) mmol/L BUN (7.0-18.0) mg/dL Creatinine (0.6-1.0) mg/dL Est Cr Clr Drug Dosing mL/min Estimated GFR (MDRD) ml/min Glucose (74-106) mg/dL POC Glucose 135 H 117 H (60-110) mg/dL Calcium (8.5-10.1) mg/dL Phosphorus (2.6-4.7) mg/dL Magnesium (1.8-2.4) mg/dL FOREST Results - Last 24 hrs: Microbiology 05/07/20 03:20 Aerobic Blood Culture - Preliminary Blood - Venous - Lab Draw NO GROWTH AFTER 4 DAYS Anaerobic Blood Culture - Final 05/07/20 03:10 Aerobic Blood Culture - Preliminary Blood - Venous NO GROWTH AFTER 4 DAYS Anaerobic Blood Culture - Final Med Orders - Current: Current Medications Acetaminophen (Tylenol Extra Strength) 500 mg PO Q4H PRN PRN Reason: fever/pain Last Admin: 05/08/20 12:36 Dose: 500 mg Documented by: Lactated Ringer's (Ringers, Lactated) 1,000 mls @ 125 mls/hr IV ASDIRECTED [facility] Last Admin: 05/11/20 10:14 Dose: 125 mls/hr Documented by: Pantoprazole Sodium 40 mg/ (Sodium Chloride) 10 mls @ 300 mls/hr IV Q24H [facility] Last Admin: 05/11/20 10:10 Dose: 300 mls/hr Documented by: Insulin Aspart (Novolog) 0 unit SUBCUT TIDAC [facility]; Protocol Last Admin: 05/11/20 11:29 Dose: Not Given Documented by: Insulin Detemir (Levemir) 15 unit SUBCUT BEDTIME [facility] Last Admin: 05/10/20 21:17 Dose: 15 units Documented by: Morphine Sulfate (Morphine) 1 mg IVPUSH Q4H PRN PRN Reason: Pain Last Admin: 05/09/20 14:23 Dose: 1 mg Documented by: Ondansetron HCl (Zofran) 4 mg IVPUSH Q6H PRN PRN Reason: Nausea/Vomiting Last Admin: 05/10/20 08:29 Dose: 4 mg Documented by: Levetiracetam [ (Keppra] 500 Mg) 1 each PO BID [facility] Last Admin: 05/11/20 09:35 Dose: 1 each Documented by: Promethazine HCl (Phenergan) 25 mg IM Q6H PRN PRN Reason: Nausea Last Admin: 05/11/20 10:06 Dose: 25 mg Documented by: Sertraline HCl (Zoloft) 50 mg PO DAILY [facility] Last Admin: 05/11/20 09:35 Dose: 50 mg Documented by: Sodium Chloride (Saline Flush) 10 ml FLUSH ASDIRECTED PRN PRN Reason: Keep Vein Open Sodium Chloride (Saline Flush) 2.5 ml FLUSH ASDIRECTED PRN PRN Reason: Keep Vein Open Discontinued Medications Acetaminophen (Tylenol Extra Strength) 1,000 mg PO ONETIME ONE Stop: 05/07/20 02:33 Last Admin: 05/07/20 03:47 Dose: Not Given Documented by: Diphenhydramine HCl (Benadryl) 25 mg IVPUSH ONETIME ONE Stop: 05/08/20 10:22 Last Admin: 05/08/20 10:36 Dose: 25 mg Documented by: Fentanyl (Fentanyl) Confirm Administered Dose 50 mcg .ROUTE .STK-MED ONE Stop: 05/07/20 02:19 Last Admin: 05/07/20 02:57 Dose: 50 mcg Documented by: Fentanyl (Fentanyl) 50 mcg IVPUSH ONETIME ONE Stop: 05/07/20 02:19 Last Admin: 05/07/20 03:04 Dose: Not Given Documented by: Lactated Ringer's (Ringers, Lactated) 1,000 mls @ 999 mls/hr IV .BOLUS ONE Stop: 05/07/20 02:11 Last Admin: 05/07/20 01:15 Dose: 999 mls/hr Documented by: Magnesium Sulfate 2 gm/ Premix 50 mls @ 50 mls/hr IV ONETIME ONE Stop: 05/07/20 02:55 Last Admin: 05/07/20 02:08 Dose: 50 mls/hr Documented by: Potassium Chloride 20 meq/ (Premix) 50 mls @ 25 mls/hr IV ONETIME ONE Stop: 05/07/20 03:56 Last Infusion: 05/07/20 03:48 Dose: 20 mls/hr Documented by: Vancomycin HCl 1.5 gm/ (Dextrose/Water) 250 mls @ 167 mls/hr IV ONETIME ONE Stop: 05/07/20 04:49 Last Admin: 05/07/20 06:48 Dose: Not Given Documented by: Meropenem 2 gm/ Sodium (Chloride) 100 mls @ 100 mls/hr IV ONETIME ONE Stop: 05/07/20 04:22 Last Admin: 05/07/20 03:50 Dose: 100 mls/hr Documented by: Vancomycin HCl 1.5 gm/ (Dextrose/Water) 500 mls @ 334.014 mls/hr IV ONETIME ONE Stop: 05/07/20 04:49 Last Admin: 05/07/20 04:04 Dose: 334.014 mls/hr Documented by: Pantoprazole Sodium 40 mg/ (Sodium Chloride) 10 mls @ 300 mls/hr IV Q24H [facility] Last Admin: 05/07/20 05:48 Dose: 300 mls/hr Documented by: Vancomycin HCl 1 gm/ Sodium (Chloride) 250 mls @ 166 mls/hr IV Q12H [facility] Meropenem/Sodium Chloride 1 gm (/ Premix) 50 mls @ 100 mls/hr IV Q12H [facility] Last Admin: 05/08/20 03:57 Dose: 100 mls/hr Documented by: Vancomycin HCl 1.25 gm/ Sodium (Chloride) 250 mls @ 167 mls/hr IV Q12H [facility] Last Admin: 05/08/20 02:26 Dose: 167 mls/hr Documented by: Potassium Chloride 40 meq/ (Premix) 100 mls @ 25 mls/hr IV ONETIME ONE Stop: 05/07/20 14:53 Last Admin: 05/07/20 11:47 Dose: 25 mls/hr Documented by: Lactated Ringer's (Ringers, Lactated) 1,000 mls @ 999 mls/hr IV .BOLUS ONE Stop: 05/07/20 12:04 Last Admin: 05/07/20 11:59 Dose: 999 mls/hr Documented by: Magnesium Sulfate 2 gm/ Premix 50 mls @ 50 mls/hr IV ONETIME ONE Stop: 05/07/20 12:04 Last Admin: 05/07/20 12:00 Dose: 50 mls/hr Documented by: Pantoprazole Sodium 40 mg/ (Sodium Chloride) 10 mls @ 300 mls/hr IV ONETIME ONE Stop: 05/07/20 11:40 Last Admin: 05/07/20 12:00 Dose: 300 mls/hr Documented by: Lactated Ringer's (Ringers, Lactated) 1,000 mls @ 999 mls/hr IV .BOLUS ONE Stop: 05/08/20 00:49 Last Admin: 05/08/20 00:00 Dose: 999 mls/hr Documented by: Magnesium Sulfate 2 gm/ Premix 50 mls @ 50 mls/hr IV ONETIME ONE Stop: 05/08/20 10:29 Last Admin: 05/08/20 09:55 Dose: 50 mls/hr Documented by: Potassium Chloride 60 meq/ (Sodium Chloride) 530 mls @ 88.333 mls/hr IV ONETIME ONE Stop: 05/08/20 15:39 Last Admin: 05/08/20 09:55 Dose: 88.333 mls/hr Documented by: Magnesium Sulfate 2 gm/ Premix 50 mls @ 50 mls/hr IV ONETIME ONE Stop: 05/09/20 09:42 Last Admin: 05/09/20 09:02 Dose: 50 mls/hr Documented by: Potassium Chloride/Sodium Chloride (Normal Saline With 40 Meq Kcl) 1,000 mls @ 150 mls/hr IV ASDIRECTED [facility] Stop: 05/09/20 16:39 Last Admin: 05/09/20 10:30 Dose: 150 mls/hr Documented by: Magnesium Sulfate 2 gm/ Premix 50 mls @ 50 mls/hr IV ONETIME ONE Stop: 05/10/20 11:58 Last Admin: 05/10/20 11:32 Dose: 50 mls/hr Documented by: Ibuprofen (Motrin) 400 mg PO ONETIME ONE Stop: 05/07/20 02:33 Last Admin: 05/07/20 03:16 Dose: Not Given Documented by: Iopamidol (Isovue-370 (76%)) 100 ml IVPUSH ONETIME ONE Stop: 05/07/20 02:33 Last Admin: 05/07/20 02:32 Dose: 100 ml Documented by: Metoclopramide HCl (Reglan) 10 mg IVPUSH ONETIME ONE Stop: 05/07/20 01:59 Last Admin: 05/07/20 02:07 Dose: 10 mg Documented by: Ondansetron HCl (Zofran) 4 mg IVPUSH ONETIME ONE Stop: 05/07/20 01:00 Last Admin: 05/07/20 01:09 Dose: 4 mg Documented by: Ondansetron HCl (Zofran) Confirm Administered Dose 4 mg .ROUTE .STK-MED ONE Stop: 05/07/20 01:01 Last Admin: 05/07/20 01:15 Dose: Not Given Documented by: Ondansetron HCl (Zofran) 4 mg IVPUSH ONETIME ONE Stop: 05/07/20 09:55 Last Admin: 05/07/20 11:45 Dose: 4 mg Documented by: Potassium Chloride (Potassium Chloride) 60 meq PO ONETIME ONE Stop: 05/07/20 03:01 Last Admin: 05/07/20 03:06 Dose: 60 meq Documented by:
== END 2020-05-11 16:24 | disposition home or self-care (01) | DRG 641 ==
LOC: MW.ED 00:46 → MW.MS 03:33 → OBSVTOIN 05-09 10:51 → MW.MS 05-09 10:52
PROVIDERS: ADMIT Student in an Organized Health Care Education/Training Program; ATTEND Student in an Organized Health Care Education/Training Program
DX: E87.6 Hypokalemia (principal); E83.42 Hypomagnesemia; R10.13 Epigastric pain; E11.9 Type 2 diabetes mellitus without complications; R11.2 Nausea with vomiting, unspecified; I10 Essential (primary) hypertension; F32.9 Major depressive disorder, single episode, unspecified; K21.9 Gastro-esophageal reflux disease without esophagitis; H54.7 Unspecified visual loss; F41.9 Anxiety disorder, unspecified; K40.90 Unilateral inguinal hernia, without obstruction or gangrene, not specified as recurrent; K29.70 Gastritis, unspecified, without bleeding; G40.909 Epilepsy, unspecified, not intractable, without status epilepticus; R94.31 Abnormal electrocardiogram [ECG] [EKG]; Z79.82 Long term (current) use of aspirin; Z88.8 Allergy status to other drugs, medicaments and biological substances; Z88.6 Allergy status to analgesic agent; Z88.0 Allergy status to penicillin; Z88.2 Allergy status to sulfonamides; Z91.030 Bee allergy status; Z88.1 Allergy status to other antibiotic agents; Z79.4 Long term (current) use of insulin; Z79.899 Other long term (current) drug therapy; Z90.710 Acquired absence of both cervix and uterus; Z20.828 Contact with and (suspected) exposure to other viral communicable diseases
CPT/HCPCS: 36415 ×3; 71045; 71275; 72191; 74175; 76705; 80048 ×3; 80053; 80076; 81003; 82962 ×12; 83036; 83605 ×2; 83690; 83735 ×3; 84100 ×3; 84484; 84703; 85025 ×4; 85610; 87040 ×2; 87635; 93005 ×2; A9270 ×4; C9113 ×4; J1200; J1815 ×2; J2185 ×3; J2270 ×5; J2405 ×7; J2765; J3010; J3370 ×3; J3475 ×4; J3480 ×4; J7040; J7050 ×7; J7060; J7120 ×9; Q9967; 96361; 96365; 96366; 96367; 96368; 96375; 96376; 99283; 99285-25; G0378; J2550; U0002

== ENCOUNTER 2023-04-29 08:22 | Emergency (ER) | payer BC, OTHER ==
[2023-04-29 10:18] VITALS: PULSE 92
[2023-04-29 10:47] VITALS: BP 122/81
== END 2023-04-29 10:47 | disposition home or self-care (01) ==
LOC: MW.ED 08:22
DX: E11.649 Type 2 diabetes mellitus with hypoglycemia without coma (principal); Z88.8 Allergy status to other drugs, medicaments and biological substances; Z88.0 Allergy status to penicillin; Z88.2 Allergy status to sulfonamides; Z91.030 Bee allergy status; Z79.84 Long term (current) use of oral hypoglycemic drugs
CPT/HCPCS: 82947; 99284

== ENCOUNTER 2025-05-04 06:59 | Day surgery (SDC) | payer BC, OTHER ==
[~2025-05-04 06:59] MED LIST changes: -Lactated Ringers 1,000 ML IV SCH
[2025-05-04] MEDS: Lactated Ringers 1,000 ML IV SCH (08:02)
[2025-05-04] MEDS ORDERED: propofoL 500 MG/50 ML 50 ML ONE (08:48)
[2025-05-04 13:25] VITALS: BP 113/52; PULSE 65
== END 2025-05-04 10:11 | disposition home or self-care (01) ==
LOC: MW.SDS 06:59
PROVIDERS: ATTEND Surgery
DX: K29.50 Unspecified chronic gastritis without bleeding (principal); K31.A0 Gastric intestinal metaplasia, unspecified; K20.90 Esophagitis, unspecified without bleeding; D64.9 Anemia, unspecified; E11.9 Type 2 diabetes mellitus without complications; E66.9 Obesity, unspecified; Z88.8 Allergy status to other drugs, medicaments and biological substances; Z88.0 Allergy status to penicillin; Z88.2 Allergy status to sulfonamides; Z79.4 Long term (current) use of insulin; Z68.36 Body mass index [BMI] 36.0-36.9, adult; Z79.84 Long term (current) use of oral hypoglycemic drugs; Z79.899 Other long term (current) drug therapy; Z87.891 Personal history of nicotine dependence
CPT/HCPCS: 43239; 45378; J2003; J2704; J7120; 00813